=== PATIENT | female | born 1945 | race Caucasian/White ===

== ENCOUNTER → 2016-04-30 | Outpatient (CLI) | payer MEDICARE, BC | LOC: MW.CHIM 08:00 | PROVIDERS: ATTEND Internal Medicine | DX: I83.10 Varicose veins of unspecified lower extremity with inflammation (principal); I10 Essential (primary) hypertension; E78.00 Pure hypercholesterolemia, unspecified | CPT/HCPCS: 99214 ==

== ENCOUNTER → 2016-05-12 | Outpatient (CLI) | payer MEDICARE, BC | LOC: MW.CHIM 08:00 | PROVIDERS: ATTEND Internal Medicine | DX: I83.10 Varicose veins of unspecified lower extremity with inflammation (principal); I10 Essential (primary) hypertension; E78.00 Pure hypercholesterolemia, unspecified | CPT/HCPCS: 99214 ==

== ENCOUNTER → 2016-05-14 | Outpatient (CLI) | payer MEDICARE, BC ==
--- NOTE | 2016-05-14 16:39 | US ---
EXAMINATION: GUIDO HISTORY: Disorder of veins COMPARISON: None TECHNIQUE: Pressures obtained in the upper and lower extremities. FINDINGS/IMPRESSION: Both the left and right ABIs are greater than 1 and normal.
== END ==
LOC: MW.US 14:45
PROVIDERS: ATTEND Internal Medicine
DX: I87.2 Venous insufficiency (chronic) (peripheral) (principal); I87.8 Other specified disorders of veins
CPT/HCPCS: 93922; 93922-26

== ENCOUNTER 2019-12-12 12:51 | Inpatient (IN) | payer MEDICARE, BC, OTHER ==
[2019-12-12] MEDS ORDERED: Sodium Chloride 0.9% 10 ML Syringe FLUSH PRN (13:25)
[2019-12-12] MEDS ORDERED: Sodium Chloride 0.9% 2.5 ML Syringe FLUSH PRN (13:25)
[2019-12-12] MEDS ORDERED: Sodium Chloride 0.9% 1,000 ML IV ONE (13:25)
[2019-12-12] MEDS ORDERED: Dexamethasone 4 MG Tab PO ONE (13:26)
--- NOTE | 2019-12-12 14:10 | PCM.SN.2 ---
- Free Text/Narrative Note: Heart rate = 87 bpm, normal sinus rhythm, normal QRS interval, no STEMI. EKG and rhythm strip interpreted by me at 1358
[2019-12-12 14:26] LABS: BLOOD UREA NITROGEN,BUN 23 mg/dL (7.0-18.0); CARBON DIOXIDE,CO2 24.1 mmol/L (21.0-32.0); CHLORIDE,CL 90 mmol/L (98-107); GLUCOSE RANDOM 103 mg/dL (74-106); POTASSIUM,K 3.4 mmol/L (3.5-5.1); SODIUM,NA 125 mmol/L (136-145)
--- NOTE | 2019-12-12 15:04 | CR ---
INDICATION: Shortness of breath and cough TECHNIQUE: Chest 1 view. COMPARISON: None FINDINGS: Cardiovascular and mediastinum: Heart size and vasculature are normal in caliber and appearance. Mediastinum is within normal limits. Lungs and pleural space: Possible subtle right upper lobe airspace opacity. No sign of pleural effusion. No pneumothorax. Bones and soft tissues: No significant findings. IMPRESSION: Possible subtle right upper lobe airspace opacity. Dictated by Lavelle Eugene MD @ Dec 12 2019 2:58PM Signed by Dr. Lavelle Eugene @ Dec 12 2019 3:02PM
--- NOTE | 2019-12-12 15:07 | EDM.PDOC ---
ED HPI GENERAL MEDICAL PROBLEM - General Chief Complaint: General Stated Complaint: TIRED,FATIGUE,COVID EXPOSURE Time Seen by Provider: 12/12/19 13:00 Source of Information: Reports: Patient History Limitations: Reports: No Limitations - History of Present Illness INITIAL COMMENTS - FREE TEXT/NARRATIVE: HISTORY AND PHYSICAL: History of present illness: Patient is a 74-year-old female who presents to the emergency room with complaints of fatigue, decreased appetite, cough and generalized body aches. She has had symptoms for approximately 1 week and feels that they are not i mproving. She does have several family members who have tested positive for COVID concerned due to her exposures. Patient denies any fever, chills, headache, change in vision, syncope or near syncope. Denies any chest pain, back pain, abdominal pain, nausea, vomiting, diarrhea, constipation or dysuria. Has not noted any blood in urine or stool. Review of systems: As per history of present illness and below otherwise all systems reviewed and negative. Past medical history: As per history of present illness and as reviewed below otherwise noncontributory. Surgical history: As per history of present illness and as reviewed below otherwise noncontributory. Social history: See social history for further information Family history: As per history of present illness and as reviewed below otherwise noncontributory. Physical exam: General: Well developed and well nourished 74-year-old female. Alert and orientated x 3. Nontoxic in appearance and in no acute distress. Vital signs are stable and have been reviewed by me. Nursing notes were reviewed. HEENT: Atraumatic, normocephalic, pupils equal and reactive bilaterally, negative for conjunctival pallor or scleral icterus, mucous membranes moist, TMs normal bilaterally, throat clear, neck supple, nontender, trachea midline. No drooling or trismus noted. No meningeal signs. No hot potato voice noted. Lungs: Diminished to auscultation, breath sounds equal bilaterally, chest nontender. Normal work of breathing, no accessory muscles used. Heart: S1S2, regular rate and rhythm without overt murmur Abdomen: Soft, nondistended, nontender. Negative for masses or hepatosplenomegaly. Negative for costovertebral tenderness. Skin: Intact, warm, dry. No lesions or rashes noted. Hematologic: No petechiae or purpra. Mucosa appropriate color and normal nail bed color and refill. Extremities: Atraumatic, moves all extremities per self without difficulty or deficits, negative for cords or calf pain. Neurovascular unremarkable. Neuro: Awake, alert, oriented. Cranial nerves II through XII unremarkable. Cerebellum unremarkable. Motor and sensory unremarkable throughout. Exam nonfocal. Psychiatric: Mood and affect are appropriate. Normal thought process. Answering questions appropriately. Notes: Chest x-ray shows possible subtle right upper lobe airspace opacity. Her D- dimer is elevated, CT of the chest to rule out PE has been ordered. This can also assess for pneumonia. Diagnostics: CBC, CMP, troponin, EKG, chest x-ray, Covid, D-dimer, PE angio chest Therapeutics: IV fluids, Dexamethason Impression: COVID- 19 Plan: Observation admission to Med/Surg Definitive disposition and diagnosis as appropriate pending reevaluation and review of above. Duration: Week(s): Location: Reports: Chest - Related Data Allergies Allergy/AdvReac Type Severity Reaction Status Date / Time Penicillins Allergy Rash Verified 12/12/19 17:51 Home Meds: Home Meds Lisinopril/Hydrochlorothiazide [Lisinopril-Hctz 20-25 mg Tab] 20 - 25 mg PO DAILY 07/07/15 [History] Lovastatin 40 mg PO DAILY 07/07/15 [History] amLODIPine [Norvasc] 2.5 mg PO DAILY 07/07/15 [History] Past Medical History HEENT History: Reports: Allergic Rhinitis Other HEENT History: wears glasses Cardiovascular History: Reports: High Cholesterol, Hypertension Respiratory History: Reports: None Gastrointestinal History: Reports: Colon Polyp Genitourinary History: Reports: None 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 Musculoskeletal History: Reports: None Neurological History: Reports: None Psychiatric History: Reports: None Endocrine/Metabolic History: Reports: Obesity/BMI 30+ Hematologic History: Reports: None Immunologic History: Reports: None Oncologic (Cancer) History: Reports: None Dermatologic History: Reports: None - Past Surgical History Head Surgeries/Procedures: Reports: None Respiratory Surgical History: Reports: None Female Surgical History: Reports: Hysterectomy Endocrine Surgical History: Reports: None Neurological Surgical History: Reports: None Musculoskeletal Surgical History: Reports: None Oncologic Surgical History: Reports: None Social & Family History - Tobacco Use Tobacco Use Status *Q: Never Tobacco User - Recreational Drug Use Recreational Drug Use: No ED ROS GENERAL - Review of Systems Review Of Systems: Comprehensive ROS is negative, except as noted in HPI. ED EXAM, GENERAL - Physical Exam Exam: See Below (See dictation) Course - Vital Signs Last Recorded V/S: Last Vital Signs Temp 98 F 12/12/19 17:27 Pulse 99 12/12/19 17:27 Resp 20 12/12/19 17:27 BP 141/63 H 12/12/19 17:27 Pulse Ox 89 L 12/12/19 17:27 - Orders/Labs/Meds Orders: Active Orders 24 hr Category Date Time Status EKG Documentation Completion [RC] STAT Care 12/12/19 13:25 Active Oxygen Therapy, ED [RC] ASDIRECTED Care 12/12/19 13:26 Active Sodium Chloride 0.9% [Saline Flush] Med 12/12/19 13:25 Active 10 ml FLUSH ASDIRECTED PRN Sodium Chloride 0.9% [Saline Flush] Med 12/12/19 13:25 Active 2.5 ml FLUSH ASDIRECTED PRN Saline Lock Insert [OM.PC] Stat Oth 12/12/19 13:25 Ordered Medication Orders Amlodipine Besylate (Norvasc) 2.5 mg PO DAILY MACEY Dexamethasone (Dexamethasone) 4 mg PO Q24H MACEY Enoxaparin Sodium (Lovenox) 30 mg SUBCUT Q24H MACEY Remdesivir 100 mg/ Sodium (Chloride) 100 mls @ 100 mls/hr IV Q24H MACEY Stop: 12/16/19 18:29 Remdesivir 200 mg/ Sodium (Chloride) 250 mls @ 250 mls/hr IV ONETIME ONE Stop: 12/12/19 18:29 Last Admin: 12/12/19 17:46 Dose: 250 mls/hr Documented by: TYLER Influenza Virus Vaccine (Fluzone High-Dose Quad ) 240 mcg IM .ONCE ONE Stop: 12/14/19 09:01 Lovastatin (Mevacor) 40 mg PO BEDTIME MACEY Ondansetron HCl (Zofran) 4 mg IVPUSH Q4H PRN PRN Reason: Nausea Sodium Chloride (Saline Flush) 10 ml FLUSH ASDIRECTED PRN PRN Reason: Keep Vein Open Sodium Chloride (Saline Flush) 2.5 ml FLUSH ASDIRECTED PRN PRN Reason: Keep Vein Open Last Admin: 12/12/19 13:47 Dose: 2.5 ml Documented by: FRANCESCA Labs: Laboratory Tests 12/12/19 12/12/19 12/12/19 Range/Units 13:44 13:44 13:44 WBC 5.86 (4.0-11.0) K/uL RBC 4.97 (4.30-5.90) M/uL Hgb 13.7 (12.0-16.0) g/dL Hct 40.0 (36.0-46.0) % MCV 80.5 (80.0-98.0) fL MCH 27.6 (27.0-32.0) pg MCHC 34.3 (31.0-37.0) g/dL RDW Std Deviation 38.3 (28.0-62.0) fl RDW Coeff of Harsh 13 (11.0-15.0) % Plt Count 198 (150-400) K/uL MPV 9.30 (7.40-12.00) fL Neut % (Auto) 74.5 (48.0-80.0) % Lymph % (Auto) 18.1 (16.0-40.0) % [place] % (Auto) 7.2 (0.0-15.0) % Eos % (Auto) 0.0 (0.0-7.0) % Baso % (Auto) 0.2 (0.0-1.5) % Neut # (Auto) 4.4 (1.4-5.7) K/uL Lymph # (Auto) 1.1 (0.6-2.4) K/uL [place] # (Auto) 0.4 (0.0-0.8) K/uL Eos # (Auto) 0.0 (0.0-0.7) K/uL Baso # (Auto) 0.0 (0.0-0.1) K/uL Nucleated RBC % 0.0 /100WBC Nucleated RBCs # 0 K/uL D-Dimer, Quantitative 0.88 H (0.0-0.50) mg/L FEU Sodium 125 L (136-145) mmol/L Potassium 3.4 L (3.5-5.1) mmol/L Chloride 90 L (98-107) mmol/L Carbon Dioxide 24.1 (21.0-32.0) mmol/L BUN 23 H (7.0-18.0) mg/dL Creatinine 1.3 H (0.6-1.0) mg/dL Est Cr Clr Drug Dosing 30.93 mL/min Estimated GFR (MDRD) 39.9 ml/min Glucose 103 (74-106) mg/dL Calcium 8.8 (8.5-10.1) mg/dL Magnesium (1.8-2.4) mg/dL Total Bilirubin 0.4 (0.2-1.0) mg/dL AST 37 (15-37) IU/L ALT 34 (14-63) IU/L Alkaline Phosphatase 80 (46-116) U/L Troponin I < 0.050 (0.000-0.056) ng/mL Total Protein 7.1 (6.4-8.2) g/dL Albumin 2.8 L (3.4-5.0) g/dL Globulin 4.3 H (2.6-4.0) g/dL Albumin/Globulin Ratio 0.7 L (0.9-1.6) SARS-CoV-2 RNA (APRIL) (NEGATIVE) 12/12/19 12/12/19 Range/Units 13:44 14:08 WBC (4.0-11.0) K/uL RBC (4.30-5.90) M/uL Hgb (12.0-16.0) g/dL Hct (36.0-46.0) % MCV (80.0-98.0) fL MCH (27.0-32.0) pg MCHC (31.0-37.0) g/dL RDW Std Deviation (28.0-62.0) fl RDW Coeff of Harsh (11.0-15.0) % Plt Count (150-400) K/uL MPV (7.40-12.00) fL Neut % (Auto) (48.0-80.0) % Lymph % (Auto) (16.0-40.0) % [place] % (Auto) (0.0-15.0) % Eos % (Auto) (0.0-7.0) % Baso % (Auto) (0.0-1.5) % Neut # (Auto) (1.4-5.7) K/uL Lymph # (Auto) (0.6-2.4) K/uL [place] # (Auto) (0.0-0.8) K/uL Eos # (Auto) (0.0-0.7) K/uL Baso # (Auto) (0.0-0.1) K/uL Nucleated RBC % /100WBC Nucleated RBCs # K/uL D-Dimer, Quantitative (0.0-0.50) mg/L FEU Sodium (136-145) mmol/L Potassium (3.5-5.1) mmol/L Chloride (98-107) mmol/L Carbon Dioxide (21.0-32.0) mmol/L BUN (7.0-18.0) mg/dL Creatinine (0.6-1.0) mg/dL Est Cr Clr Drug Dosing mL/min Estimated GFR (MDRD) ml/min Glucose (74-106) mg/dL Calcium (8.5-10.1) mg/dL Magnesium 1.8 (1.8-2.4) mg/dL Total Bilirubin (0.2-1.0) mg/dL AST (15-37) IU/L ALT (14-63) IU/L Alkaline Phosphatase (46-116) U/L Troponin I (0.000-0.056) ng/mL Total Protein (6.4-8.2) g/dL Albumin (3.4-5.0) g/dL Globulin (2.6-4.0) g/dL Albumin/Globulin Ratio (0.9-1.6) SARS-CoV-2 RNA (APRIL) POSITIVE H (NEGATIVE) Meds: Medications Generic Name Dose Route Start Last Admin Trade Name Freq PRN Reason Stop Dose Admin Amlodipine Besylate 2.5 mg 12/13/19 09:00 Norvasc PO DAILY MACEY Dexamethasone 4 mg 12/13/19 16:00 Dexamethasone PO Q24H MACEY Enoxaparin Sodium 30 mg 12/12/19 17:30 Lovenox SUBCUT Q24H MACEY Remdesivir 100 mg/ Sodium 100 mls @ 100 mls/hr 12/13/19 17:30 Chloride IV 12/16/19 18:29 Q24H MACEY Remdesivir 200 mg/ Sodium 250 mls @ 250 mls/hr 12/12/19 17:30 12/12/19 17:46 Chloride IV 12/12/19 18:29 250 mls/hr ONETIME ONE Administration Influenza Virus Vaccine 240 mcg 12/14/19 09:00 Fluzone High-Dose Quad 2020-21 IM 12/14/19 09:01 .ONCE ONE Lovastatin 40 mg 12/12/19 21:00 Mevacor PO BEDTIME MACEY Ondansetron HCl 4 mg 12/12/19 15:52 Zofran IVPUSH Q4H PRN Nausea Sodium Chloride 10 ml 12/12/19 13:25 Saline Flush FLUSH ASDIRECTED PRN Keep Vein Open Sodium Chloride 2.5 ml 12/12/19 13:25 12/12/19 13:47 Saline Flush FLUSH 2.5 ml ASDIRECTED PRN Administration Keep Vein Open Discontinued Medications Generic Name Dose Route Start Last Admin Trade Name Freq PRN Reason Stop Dose Admin Dexamethasone 6 mg 12/12/19 13:26 12/12/19 13:45 Dexamethasone PO 12/12/19 13:27 6 mg ONETIME ONE Administration Enoxaparin Sodium 30 mg 12/12/19 17:00 Lovenox SUBCUT Q24H MACEY Sodium Chloride 1,000 mls @ 999 mls/hr 12/12/19 13:25 12/12/19 13:45 Normal Saline IV 12/12/19 14:25 999 mls/hr STAT ONE Administration Influenza Virus Vaccine 1 each 12/12/19 17:39 Pharmacy To Dose - Influenza Vaccine IM 12/12/19 17:40 ONETIME ONE Iopamidol 75 ml 12/12/19 17:16 12/12/19 17:35 Isovue Multipack-370 (76%) IVPUSH 12/12/19 17:17 75 ml ONETIME STA Administration Departure - Departure Time of Disposition: 18:29 Disposition: Admitted As Inpatient 65 Clinical Impression: COVID-19 - Discharge Information Sepsis Event Note (ED) - Evaluation Sepsis Screening Result: No Definite Risk - Focused Exam Vital Signs: Vital Signs Temp Pulse Resp BP Pulse Ox 12/12/19 14:13 86 112/58 L 94 L 12/12/19 13:10 98.4 F 89 17 157/67 H 89 L - My Orders Last 24 Hours: My Active Orders 12/12/19 13:25 EKG Documentation Completion [RC] STAT Sodium Chloride 0.9% [Saline Flush] 10 ml FLUSH ASDIRECTED PRN Sodium Chloride 0.9% [Saline Flush] 2.5 ml FLUSH ASDIRECTED PRN Saline Lock Insert [OM.PC] Stat 12/12/19 13:26 Oxygen Therapy, ED [RC] ASDIRECTED - Assessment/Plan Last 24 Hours: My Active Orders 12/12/19 13:25 EKG Documentation Completion [RC] STAT Sodium Chloride 0.9% [Saline Flush] 10 ml FLUSH ASDIRECTED PRN Sodium Chloride 0.9% [Saline Flush] 2.5 ml FLUSH ASDIRECTED PRN Saline Lock Insert [OM.PC] Stat 12/12/19 13:26 Oxygen Therapy, ED [RC] ASDIRECTED
[2019-12-12] MEDS ORDERED: Ondansetron 4 MG/2 ML SDV IVPUSH PRN (15:52)
[2019-12-12] MEDS ORDERED: Enoxaparin 40 MG/0.4 ML Syringe SUBCUT SCH (16:00)
--- NOTE | 2019-12-12 16:02 | PCM.HP.2 ---
H&P History of Present Illness - General Date of Service: 12/12/19 Admit Problem/Dx: Admission Diagnosis/Problem Admission Diagnosis/Problem Viral respiratory infection - History of Present Illness Initial Comments - Free Text/Narative: 74 yo female with pmh of hypertension who presents with one week history of f atigue, headache, and cough. Patient in the ED was requiring 2 Liters NC to keep sats above 90%. She was positive for COVID. Sodium was 125, and Creatinine 1.3. CXR reported right upper lobe opacity. - Related Data Allergies/Adverse Reactions: Allergies Allergy/AdvReac Type Severity Reaction Status Date / Time Penicillins Allergy Rash Verified 12/12/19 13:14 Home Medications: Home Meds Lisinopril/Hydrochlorothiazide [Lisinopril-Hctz 20-25 mg Tab] 1 tab PO DAILY 07/07/15 [History] Lovastatin 1 tab PO DAILY 07/07/15 [History] amLODIPine [Norvasc] 1 tab PO DAILY 07/07/15 [History] Past Medical History HEENT History: Reports: Allergic Rhinitis Other HEENT History: wears glasses Cardiovascular History: Reports: High Cholesterol, Hypertension Respiratory History: Reports: None Gastrointestinal History: Reports: Colon Polyp Genitourinary History: Reports: None [employer] History: Reports: None Musculoskeletal History: Reports: None Neurological History: Reports: None Psychiatric History: Reports: None Endocrine/Metabolic History: Reports: Obesity/BMI 30+ Hematologic History: Reports: None Immunologic History: Reports: None Oncologic (Cancer) History: Reports: None Dermatologic History: Reports: None - Past Surgical History Head Surgeries/Procedures: Reports: None Respiratory Surgical History: Reports: None Female Surgical History: Reports: Hysterectomy Endocrine Surgical History: Reports: None Neurological Surgical History: Reports: None Musculoskeletal Surgical History: Reports: None Oncologic Surgical History: Reports: None Social & Family History - Tobacco Use Tobacco Use Status *Q: Never Tobacco User - Recreational Drug Use Recreational Drug Use: No H&P Review of Systems - Review of Systems: Review Of Systems: Comprehensive ROS is negative, except as noted in HPI. Exam - Exam Exam: See Below - Vital Signs Vital Signs: Last Vital Signs Temp 36.9 C 12/12/19 13:10 Pulse 94 12/12/19 15:42 Resp 18 12/12/19 15:42 BP 106/64 12/12/19 15:42 Pulse Ox 91 L 12/12/19 15:42 Weight: 89.358 kg - Exam General: Alert, Oriented HEENT: Mucosa Moist & [place] Lungs: Clear to Auscultation, Normal Respiratory Effort Cardiovascular: Regular Rate, Regular Rhythm GI/Abdominal Exam: Normal Bowel Sounds, Soft, Non-Tender Extremities: No Pedal Edema Skin: Warm, Dry, Intact - Patient Data Lab Results Last 24 hrs: Laboratory Results - last 24 hr 12/12/19 12/12/19 12/12/19 Range/Units 13:44 13:44 13:44 WBC 5.86 (4.0-11.0) K/uL RBC 4.97 (4.30-5.90) M/uL Hgb 13.7 (12.0-16.0) g/dL Hct 40.0 (36.0-46.0) % MCV 80.5 (80.0-98.0) fL MCH 27.6 (27.0-32.0) pg MCHC 34.3 (31.0-37.0) g/dL RDW Std Deviation 38.3 (28.0-62.0) fl RDW Coeff of Harsh 13 (11.0-15.0) % Plt Count 198 (150-400) K/uL MPV 9.30 (7.40-12.00) fL Neut % (Auto) 74.5 (48.0-80.0) % Lymph % (Auto) 18.1 (16.0-40.0) % [place] % (Auto) 7.2 (0.0-15.0) % Eos % (Auto) 0.0 (0.0-7.0) % Baso % (Auto) 0.2 (0.0-1.5) % Neut # (Auto) 4.4 (1.4-5.7) K/uL Lymph # (Auto) 1.1 (0.6-2.4) K/uL [place] # (Auto) 0.4 (0.0-0.8) K/uL Eos # (Auto) 0.0 (0.0-0.7) K/uL Baso # (Auto) 0.0 (0.0-0.1) K/uL Nucleated RBC % 0.0 /100WBC Nucleated RBCs # 0 K/uL D-Dimer, Quantitative 0.88 H (0.0-0.50) mg/L FEU Sodium 125 L (136-145) mmol/L Potassium 3.4 L (3.5-5.1) mmol/L Chloride 90 L (98-107) mmol/L Carbon Dioxide 24.1 (21.0-32.0) mmol/L BUN 23 H (7.0-18.0) mg/dL Creatinine 1.3 H (0.6-1.0) mg/dL Est Cr Clr Drug Dosing 30.93 mL/min Estimated GFR (MDRD) 39.9 ml/min Glucose 103 (74-106) mg/dL Calcium 8.8 (8.5-10.1) mg/dL Total Bilirubin 0.4 (0.2-1.0) mg/dL AST 37 (15-37) IU/L ALT 34 (14-63) IU/L Alkaline Phosphatase 80 (46-116) U/L Troponin I < 0.050 (0.000-0.056) ng/mL Total Protein 7.1 (6.4-8.2) g/dL Albumin 2.8 L (3.4-5.0) g/dL Globulin 4.3 H (2.6-4.0) g/dL Albumin/Globulin Ratio 0.7 L (0.9-1.6) SARS-CoV-2 RNA (APRIL) (NEGATIVE) 12/12/19 Range/Units 14:08 WBC (4.0-11.0) K/uL RBC (4.30-5.90) M/uL Hgb (12.0-16.0) g/dL Hct (36.0-46.0) % MCV (80.0-98.0) fL MCH (27.0-32.0) pg MCHC (31.0-37.0) g/dL RDW Std Deviation (28.0-62.0) fl RDW Coeff of Harsh (11.0-15.0) % Plt Count (150-400) K/uL MPV (7.40-12.00) fL Neut % (Auto) (48.0-80.0) % Lymph % (Auto) (16.0-40.0) % [place] % (Auto) (0.0-15.0) % Eos % (Auto) (0.0-7.0) % Baso % (Auto) (0.0-1.5) % Neut # (Auto) (1.4-5.7) K/uL Lymph # (Auto) (0.6-2.4) K/uL [place] # (Auto) (0.0-0.8) K/uL Eos # (Auto) (0.0-0.7) K/uL Baso # (Auto) (0.0-0.1) K/uL Nucleated RBC % /100WBC Nucleated RBCs # K/uL D-Dimer, Quantitative (0.0-0.50) mg/L FEU Sodium (136-145) mmol/L Potassium (3.5-5.1) mmol/L Chloride (98-107) mmol/L Carbon Dioxide (21.0-32.0) mmol/L BUN (7.0-18.0) mg/dL Creatinine (0.6-1.0) mg/dL Est Cr Clr Drug Dosing mL/min Estimated GFR (MDRD) ml/min Glucose (74-106) mg/dL Calcium (8.5-10.1) mg/dL Total Bilirubin (0.2-1.0) mg/dL AST (15-37) IU/L ALT (14-63) IU/L Alkaline Phosphatase (46-116) U/L Troponin I (0.000-0.056) ng/mL Total Protein (6.4-8.2) g/dL Albumin (3.4-5.0) g/dL Globulin (2.6-4.0) g/dL Albumin/Globulin Ratio (0.9-1.6) SARS-CoV-2 RNA (APRIL) POSITIVE H (NEGATIVE) Result Diagrams: 12/12/19 13:44 12/12/19 13:44 Sepsis Event Note - Evaluation Sepsis Screening Result: No Definite Risk - Focused Exam Vital Signs: Vital Signs Temp Pulse Resp BP Pulse Ox Pulse Ox 12/12/19 15:42 94 18 106/64 91 L 12/12/19 15:41 93 L 12/12/19 14:13 86 112/58 L 94 L 12/12/19 13:10 36.9 C 89 17 157/67 H 89 L - Problem List (1) COVID-19 SNOMED Code(s): 518658138 ICD Code: U07.1 - COVID-19 Status: Acute Current Visit: Yes (2) Respiratory failure with hypoxia SNOMED Code(s): 28784209966075128 ICD Code: J96.91 - RESPIRATORY FAILURE, UNSPECIFIED WITH HYPOXIA Status: Acute Current Visit: Yes (3) ITALIA (acute kidney injury) SNOMED Code(s): 80539797, 51453968 ICD Code: N17.9 - ACUTE KIDNEY FAILURE, UNSPECIFIED Status: Acute Current Visit: Yes (4) Hypertension SNOMED Code(s): 85839069 ICD Code: I10 - ESSENTIAL (PRIMARY) HYPERTENSION Status: Chronic Current Visit: Yes (5) Hyponatremia SNOMED Code(s): 77537008 ICD Code: E87.1 - HYPO-OSMOLALITY AND HYPONATREMIA Status: Acute Current Visit: Yes Problem List Initiated/Reviewed/Updated: Yes Orders Last 24hrs: Active Orders 24 hr Category Date Time Status Admission Status [Patient Status] [ADT] Stat ADT 12/12/19 15:22 Active Antiembolic Devices [RC] PER UNIT ROUTINE Care 12/12/19 15:53 Ordered EKG Documentation Completion [RC] STAT Care 12/12/19 13:25 Active Oxygen Therapy [RC] PRN Care 12/12/19 15:52 Ordered Oxygen Therapy, ED [RC] ASDIRECTED Care 12/12/19 13:26 Active Up ad Andressa [RC] ASDIRECTED Care 12/12/19 15:52 Ordered VTE/DVT Education [RC] PER UNIT ROUTINE Care 12/12/19 15:52 Ordered Vital Signs [RC] Q4H Care 12/12/19 15:52 Ordered Regular Diet [DIET] Diet 12/12/19 Breakfast Ordered PE Chest [Ang Chest] [CT] Stat Exams 12/12/19 14:38 Ordered CBC WITH AUTO DIFF [HEME] AM Lab 12/13/19 05:11 Ordered CBC WITH AUTO DIFF [HEME] AM Lab 12/14/19 05:11 Ordered CBC WITH AUTO DIFF [HEME] AM Lab 12/15/19 05:11 Ordered CBC WITH AUTO DIFF [HEME] AM Lab 12/16/19 05:11 Ordered COMPREHENSIVE METABOLIC PN,CMP [CHEM] AM Lab 12/13/19 05:11 Ordered COMPREHENSIVE METABOLIC PN,CMP [CHEM] AM Lab 12/14/19 05:11 Ordered COMPREHENSIVE METABOLIC PN,CMP [CHEM] AM Lab 12/15/19 05:11 Ordered COMPREHENSIVE METABOLIC PN,CMP [CHEM] AM Lab 12/16/19 05:11 Ordered CREATININE,URINE RAND [URCHEM] Urgent Lab 12/12/19 15:44 Ordered MAGNESIUM [CHEM] Routine Lab 12/12/19 13:44 Received SODIUM,URINE RANDOM [URCHEM] Urgent Lab 12/12/19 15:44 Ordered UA RFX KAILA AND CULT IF INDIC [URIN] Urgent Lab 12/12/19 15:44 Ordered Enoxaparin [Lovenox] Med 12/12/19 16:00 Ordered 40 mg SUBCUT Q24H Lovastatin [Lovastatin] Med 12/13/19 09:00 Ordered 1 tab PO DAILY Ondansetron [Zofran] Med 12/12/19 15:52 Ordered 4 mg IVPUSH Q4H PRN Remdesivir (Eua) [Remdesivir (EUA)] 100 mg Med 12/13/19 16:00 Ordered Sodium Chloride 0.9% [Normal Saline] 100 ml IV Q24H Sodium Chloride 0.9% [Saline Flush] Med 12/12/19 13:25 Active 10 ml FLUSH ASDIRECTED PRN Sodium Chloride 0.9% [Saline Flush] Med 12/12/19 13:25 Active 2.5 ml FLUSH ASDIRECTED PRN amLODIPine [Norvasc] Med 12/13/19 09:00 Ordered 2.5 mg PO DAILY dexAMETHasone Med 12/13/19 16:00 Ordered 4 mg PO Q24H Saline Lock Insert [OM.PC] Stat Oth 12/12/19 13:25 Ordered Sequential Compression Device [OM.PC] Per Unit Routine Oth 12/12/19 15:52 Ordered Resuscitation Status Routine Resus Stat 12/12/19 15:52 Ordered Medication Orders Amlodipine Besylate (Norvasc) 2.5 mg PO DAILY MACEY Dexamethasone (Dexamethasone) 4 mg PO Q24H MACEY Enoxaparin Sodium (Lovenox) 40 mg SUBCUT Q24H MACEY Remdesivir 100 mg/ Sodium (Chloride) 100 mls @ 100 mls/hr IV Q24H MACEY Stop: 12/16/19 16:59 Non-Formulary Medication (Lovastatin [Lovastatin]) 1 tab PO DAILY MACEY Ondansetron HCl (Zofran) 4 mg IVPUSH Q4H PRN PRN Reason: Nausea Sodium Chloride (Saline Flush) 10 ml FLUSH ASDIRECTED PRN PRN Reason: Keep Vein Open Sodium Chloride (Saline Flush) 2.5 ml FLUSH ASDIRECTED PRN PRN Reason: Keep Vein Open Last Admin: 12/12/19 13:47 Dose: 2.5 ml Documented by: FRANCESCA Assessment/Plan Comment:: 74 yo female admitted for COVID-19 COVID: treating with Remdesivir, dexamethason, and prophylactic lovenox Patient giving fact sheet regarding FDA EUA. Patient explained benefits vs risk including hepatitis and allergy. Patient consented to remdesivir Hyponatremia: holding HCTZ, received fluids in ED, will recheck BMP tonight. ITALIA: creatinine 1.3 hold GAURAV for now.
[2019-12-12] MEDS ORDERED: Enoxaparin 30 MG/0.3 ML Syringe SUBCUT SCH ×2 (16:15→17:00)
[2019-12-12] MEDS ORDERED: Iopamidol 755 MG/ML 500 ML Multipack Bottle IVPUSH STA (17:16)
--- NOTE | 2019-12-12 18:21 | CT ---
INDICATION: Elevated D-dimer. COVID positive TECHNIQUE: CT chest pulmonary PE protocol acquired with IV contrast. 75 mL of Isovue 370 administered. COMPARISON: None FINDINGS: Cardiovascular structures: Normal vascular enhancement of the pulmonary arteries, no sign of pulmonary embolism. Heart size is normal. No sign of aneurysm or dissection in the thoracic aorta. Atherosclerotic changes. Mediastinum and yvonne: Enlarged right hilar lymph nodes measuring up to 2.1 x 1.5 cm, mildly prominent precarinal and subcarinal lymph nodes measuring up to 1.3 cm in short axis, and a borderline left hilar lymph node. A moderate hiatal hernia. Lungs: Ground-glass infiltrates in the right upper lobe and bilateral lower lobes. Mild basilar subsegmental atelectasis. Pleura and pericardium: Tiny posterior left basilar pleural fluid. Mild posterior pericardial thickening versus small fluid. Chest wall and axilla: No mass or adenopathy. A 1.1 cm calcified left thyroid lobe lesion and additional small ill-defined thyroid low-density nodules. Upper abdomen: Mild adrenal thickening. Bones: No significant findings. IMPRESSION: No CT evidence of a pulmonary embolus. Bilateral pulmonary ground-glass infiltrates compatible with COVID-19 pneumonia, given the history. Enlarged and borderline hilar and mediastinal lymph nodes. A moderate hiatal hernia. Thyroid lesions. Follow-up with nonemergent sonography. Commonly reported imaging features of (COVID- 19 ) pneumonia are present. Other processes such is influenza pneumonia and organizing pneumonia, as can be seen as well as drug toxicity and connective tissue disease can cause similar imaging pattern. REFERENCE : "[employer] Society of [place] Expert Consensus Statement on Reporting Chest CT Findings Related to COVID-19. Endorsed by the Society of Thoracic Radiology, the [place] [employer], and [employer]." RADIOLOGY: Cardiothoracic Imaging volume. 2, No. 2 Published Online:May 16 2019 [email or web address] Please note that all CT scans at this facility use dose modulation, iterative reconstruction, and/or weight-based dosing when appropriate to reduce radiation dose to as low as reasonably achievable. Dictated by Jai Amos MD @ Dec 12 2019 6:05PM Signed by Dr. Jai Amos @ Dec 12 2019 6:20PM
[2019-12-12] MEDS: Enoxaparin 30 MG/0.3 ML Syringe SUBCUT SCH (18:40)
[2019-12-12 21:42] LABS: CARBON DIOXIDE,CO2 25.7 mmol/L (21.0-32.0); POTASSIUM,K 4.1 mmol/L (3.5-5.1)
[2019-12-13 06:49] LABS: CARBON DIOXIDE,CO2 24.1 mmol/L (21.0-32.0); POTASSIUM,K 3.9 mmol/L (3.5-5.1)
[2019-12-13] MEDS: amLODIPine 2.5 MG Tab PO SCH (08:00)
[2019-12-13] MEDS: Pantoprazole 40 MG in Sodium Chloride 0.9% 10 ML IV SCH (08:00)
[2019-12-13] MEDS ORDERED: Acetaminophen 325 MG Tab PO PRN (08:15)
--- NOTE | 2019-12-13 09:04 | PCM.PN ---
- General Info Date of Service: 12/13/19 Subjective Update: No fevers or chills overnight. Reports mild cough and back pain this morning. - Patient Data Vitals - Most Recent: Last Vital Signs Temp 36.6 C 12/13/19 07:55 Pulse 80 12/13/19 07:55 Resp 16 12/13/19 07:55 BP 129/60 12/13/19 08:00 Pulse Ox 91 L 12/13/19 07:55 Weight - Most Recent: 91.354 kg I&O - Last 24 Hours: Intake & Output 12/12/19 12/13/19 12/13/19 22:59 06:59 14:59 Intake Total 1100 Output Total 1300 Balance -200 Lab Results Last 24 Hours: Laboratory Results - last 24 hr 12/12/19 12/12/19 12/12/19 Range/Units 13:44 13:44 13:44 WBC 5.86 (4.0-11.0) K/uL RBC 4.97 (4.30-5.90) M/uL Hgb 13.7 (12.0-16.0) g/dL Hct 40.0 (36.0-46.0) % MCV 80.5 (80.0-98.0) fL MCH 27.6 (27.0-32.0) pg MCHC 34.3 (31.0-37.0) g/dL RDW Std Deviation 38.3 (28.0-62.0) fl RDW Coeff of Harsh 13 (11.0-15.0) % Plt Count 198 (150-400) K/uL MPV 9.30 (7.40-12.00) fL Neut % (Auto) 74.5 (48.0-80.0) % Lymph % (Auto) 18.1 (16.0-40.0) % [place] % (Auto) 7.2 (0.0-15.0) % Eos % (Auto) 0.0 (0.0-7.0) % Baso % (Auto) 0.2 (0.0-1.5) % Neut # (Auto) 4.4 (1.4-5.7) K/uL Lymph # (Auto) 1.1 (0.6-2.4) K/uL [place] # (Auto) 0.4 (0.0-0.8) K/uL Eos # (Auto) 0.0 (0.0-0.7) K/uL Baso # (Auto) 0.0 (0.0-0.1) K/uL Nucleated RBC % 0.0 /100WBC Nucleated RBCs # 0 K/uL D-Dimer, Quantitative 0.88 H (0.0-0.50) mg/L FEU Sodium 125 L (136-145) mmol/L Potassium 3.4 L (3.5-5.1) mmol/L Chloride 90 L (98-107) mmol/L Carbon Dioxide 24.1 (21.0-32.0) mmol/L BUN 23 H (7.0-18.0) mg/dL Creatinine 1.3 H (0.6-1.0) mg/dL Est Cr Clr Drug Dosing 30.93 mL/min Estimated GFR (MDRD) 39.9 ml/min Glucose 103 (74-106) mg/dL Calcium 8.8 (8.5-10.1) mg/dL Magnesium (1.8-2.4) mg/dL Total Bilirubin 0.4 (0.2-1.0) mg/dL AST 37 (15-37) IU/L ALT 34 (14-63) IU/L Alkaline Phosphatase 80 (46-116) U/L Troponin I < 0.050 (0.000-0.056) ng/mL Total Protein 7.1 (6.4-8.2) g/dL Albumin 2.8 L (3.4-5.0) g/dL Globulin 4.3 H (2.6-4.0) g/dL Albumin/Globulin Ratio 0.7 L (0.9-1.6) Urine Color Urine Appearance Urine pH (5.0-8.0) Ur Specific [place] (1.001-1.035) Urine Protein (NEGATIVE) mg/dL Urine Glucose (UA) (NEGATIVE) mg/dL Urine Ketones (NEGATIVE) mg/dL Urine Occult Blood (NEGATIVE) Urine Nitrite (NEGATIVE) Urine Bilirubin (NEGATIVE) Urine Urobilinogen (<2.0) EU/dL Ur Leukocyte Esterase (NEGATIVE) Ur Random Creatinine mg/dL Ur Random Sodium (40.0-220.0) mmol/L SARS-CoV-2 RNA (APRIL) (NEGATIVE) 12/12/19 12/12/19 12/12/19 Range/Units 13:44 14:08 20:55 WBC (4.0-11.0) K/uL RBC (4.30-5.90) M/uL Hgb (12.0-16.0) g/dL Hct (36.0-46.0) % MCV (80.0-98.0) fL MCH (27.0-32.0) pg MCHC (31.0-37.0) g/dL RDW Std Deviation (28.0-62.0) fl RDW Coeff of Harsh (11.0-15.0) % Plt Count (150-400) K/uL MPV (7.40-12.00) fL Neut % (Auto) (48.0-80.0) % Lymph % (Auto) (16.0-40.0) % [place] % (Auto) (0.0-15.0) % Eos % (Auto) (0.0-7.0) % Baso % (Auto) (0.0-1.5) % Neut # (Auto) (1.4-5.7) K/uL Lymph # (Auto) (0.6-2.4) K/uL [place] # (Auto) (0.0-0.8) K/uL Eos # (Auto) (0.0-0.7) K/uL Baso # (Auto) (0.0-0.1) K/uL Nucleated RBC % /100WBC Nucleated RBCs # K/uL D-Dimer, Quantitative (0.0-0.50) mg/L FEU Sodium 130 L (136-145) mmol/L Potassium 4.1 (3.5-5.1) mmol/L Chloride 95 L (98-107) mmol/L Carbon Dioxide 25.7 (21.0-32.0) mmol/L BUN 18 (7.0-18.0) mg/dL Creatinine 1.2 H (0.6-1.0) mg/dL Est Cr Clr Drug Dosing 33.51 mL/min Estimated GFR (MDRD) 43.8 ml/min Glucose 152 H (74-106) mg/dL Calcium 8.5 (8.5-10.1) mg/dL Magnesium 1.8 (1.8-2.4) mg/dL Total Bilirubin (0.2-1.0) mg/dL AST (15-37) IU/L ALT (14-63) IU/L Alkaline Phosphatase (46-116) U/L Troponin I (0.000-0.056) ng/mL Total Protein (6.4-8.2) g/dL Albumin (3.4-5.0) g/dL Globulin (2.6-4.0) g/dL Albumin/Globulin Ratio (0.9-1.6) Urine Color Urine Appearance Urine pH (5.0-8.0) Ur Specific [place] (1.001-1.035) Urine Protein (NEGATIVE) mg/dL Urine Glucose (UA) (NEGATIVE) mg/dL Urine Ketones (NEGATIVE) mg/dL Urine Occult Blood (NEGATIVE) Urine Nitrite (NEGATIVE) Urine Bilirubin (NEGATIVE) Urine Urobilinogen (<2.0) EU/dL Ur Leukocyte Esterase (NEGATIVE) Ur Random Creatinine mg/dL Ur Random Sodium (40.0-220.0) mmol/L SARS-CoV-2 RNA (APRIL) POSITIVE H (NEGATIVE) 12/12/19 12/12/19 12/13/19 Range/Units 22:00 22:00 05:35 WBC 3.34 L (4.0-11.0) K/uL RBC 4.67 (4.30-5.90) M/uL Hgb 13.0 (12.0-16.0) g/dL Hct 37.9 (36.0-46.0) % MCV 81.2 (80.0-98.0) fL MCH 27.8 (27.0-32.0) pg MCHC 34.3 (31.0-37.0) g/dL RDW Std Deviation 38.6 (28.0-62.0) fl RDW Coeff of Harsh 13 (11.0-15.0) % Plt Count 195 (150-400) K/uL MPV 9.80 (7.40-12.00) fL Neut % (Auto) 60.5 (48.0-80.0) % Lymph % (Auto) 29.9 (16.0-40.0) % [place] % (Auto) 9.6 (0.0-15.0) % Eos % (Auto) 0.0 (0.0-7.0) % Baso % (Auto) 0.0 (0.0-1.5) % Neut # (Auto) 2.0 (1.4-5.7) K/uL Lymph # (Auto) 1.0 (0.6-2.4) K/uL [place] # (Auto) 0.3 (0.0-0.8) K/uL Eos # (Auto) 0.0 (0.0-0.7) K/uL Baso # (Auto) 0.0 (0.0-0.1) K/uL Nucleated RBC % 0.0 /100WBC Nucleated RBCs # 0 K/uL D-Dimer, Quantitative (0.0-0.50) mg/L FEU Sodium (136-145) mmol/L Potassium (3.5-5.1) mmol/L Chloride (98-107) mmol/L Carbon Dioxide (21.0-32.0) mmol/L BUN (7.0-18.0) mg/dL Creatinine (0.6-1.0) mg/dL Est Cr Clr Drug Dosing mL/min Estimated GFR (MDRD) ml/min Glucose (74-106) mg/dL Calcium (8.5-10.1) mg/dL Magnesium (1.8-2.4) mg/dL Total Bilirubin (0.2-1.0) mg/dL AST (15-37) IU/L ALT (14-63) IU/L Alkaline Phosphatase (46-116) U/L Troponin I (0.000-0.056) ng/mL Total Protein (6.4-8.2) g/dL Albumin (3.4-5.0) g/dL Globulin (2.6-4.0) g/dL Albumin/Globulin Ratio (0.9-1.6) Urine Color YELLOW Urine Appearance CLEAR Urine pH 6.5 (5.0-8.0) Ur Specific [place] <= 1.005 (1.001-1.035) Urine Protein NEGATIVE (NEGATIVE) mg/dL Urine Glucose (UA) NEGATIVE (NEGATIVE) mg/dL Urine Ketones NEGATIVE (NEGATIVE) mg/dL Urine Occult Blood NEGATIVE (NEGATIVE) Urine Nitrite NEGATIVE (NEGATIVE) Urine Bilirubin NEGATIVE (NEGATIVE) Urine Urobilinogen 0.2 (<2.0) EU/dL Ur Leukocyte Esterase NEGATIVE (NEGATIVE) Ur Random Creatinine 24.1 mg/dL Ur Random Sodium 36.0 L (40.0-220.0) mmol/L SARS-CoV-2 RNA (APRIL) (NEGATIVE) 12/13/19 Range/Units 05:35 WBC (4.0-11.0) K/uL RBC (4.30-5.90) M/uL Hgb (12.0-16.0) g/dL Hct (36.0-46.0) % MCV (80.0-98.0) fL MCH (27.0-32.0) pg MCHC (31.0-37.0) g/dL RDW Std Deviation (28.0-62.0) fl RDW Coeff of Harsh (11.0-15.0) % Plt Count (150-400) K/uL MPV (7.40-12.00) fL Neut % (Auto) (48.0-80.0) % Lymph % (Auto) (16.0-40.0) % [place] % (Auto) (0.0-15.0) % Eos % (Auto) (0.0-7.0) % Baso % (Auto) (0.0-1.5) % Neut # (Auto) (1.4-5.7) K/uL Lymph # (Auto) (0.6-2.4) K/uL [place] # (Auto) (0.0-0.8) K/uL Eos # (Auto) (0.0-0.7) K/uL Baso # (Auto) (0.0-0.1) K/uL Nucleated RBC % /100WBC Nucleated RBCs # K/uL D-Dimer, Quantitative (0.0-0.50) mg/L FEU Sodium 130 L (136-145) mmol/L Potassium 3.9 (3.5-5.1) mmol/L Chloride 97 L (98-107) mmol/L Carbon Dioxide 24.1 (21.0-32.0) mmol/L BUN 17 (7.0-18.0) mg/dL Creatinine 1.0 (0.6-1.0) mg/dL Est Cr Clr Drug Dosing 40.21 mL/min Estimated GFR (MDRD) 54.1 ml/min Glucose 133 H (74-106) mg/dL Calcium 8.7 (8.5-10.1) mg/dL Magnesium (1.8-2.4) mg/dL Total Bilirubin 0.3 (0.2-1.0) mg/dL AST 32 (15-37) IU/L ALT 33 (14-63) IU/L Alkaline Phosphatase 73 (46-116) U/L Troponin I (0.000-0.056) ng/mL Total Protein 6.5 (6.4-8.2) g/dL Albumin 2.5 L (3.4-5.0) g/dL Globulin 4.0 (2.6-4.0) g/dL Albumin/Globulin Ratio 0.6 L (0.9-1.6) Urine Color Urine Appearance Urine pH (5.0-8.0) Ur Specific [place] (1.001-1.035) Urine Protein (NEGATIVE) mg/dL Urine Glucose (UA) (NEGATIVE) mg/dL Urine Ketones (NEGATIVE) mg/dL Urine Occult Blood (NEGATIVE) Urine Nitrite (NEGATIVE) Urine Bilirubin (NEGATIVE) Urine Urobilinogen (<2.0) EU/dL Ur Leukocyte Esterase (NEGATIVE) Ur Random Creatinine mg/dL Ur Random Sodium (40.0-220.0) mmol/L SARS-CoV-2 RNA (APRIL) (NEGATIVE) Med Orders - Current: Current Medications Acetaminophen (Tylenol) 325 mg PO Q4H PRN PRN Reason: Pain Amlodipine Besylate (Norvasc) 2.5 mg PO DAILY [facility] Last Admin: 12/13/19 08:00 Dose: 2.5 mg Documented by: Dexamethasone (Dexamethasone) 4 mg PO Q24H [facility] Enoxaparin Sodium (Lovenox) 30 mg SUBCUT Q24H [facility] Last Admin: 12/12/19 18:40 Dose: 30 mg Documented by: Remdesivir 100 mg/ Sodium (Chloride) 100 mls @ 100 mls/hr IV Q24H [facility] Stop: 12/16/19 18:29 Pantoprazole Sodium 40 mg/ (Sodium Chloride) 10 mls @ 300 mls/hr IV Q24H [facility] Last Admin: 12/13/19 08:00 Dose: 300 mls/hr Documented by: Influenza Virus Vaccine (Fluzone High-Dose Quad ) 240 mcg IM .ONCE ONE Stop: 12/14/19 09:01 Lovastatin (Mevacor) 40 mg PO BEDTIME [facility] Last Admin: 12/12/19 22:30 Dose: 40 mg Documented by: Ondansetron HCl (Zofran) 4 mg IVPUSH Q4H PRN PRN Reason: Nausea Sodium Chloride (Saline Flush) 10 ml FLUSH ASDIRECTED PRN PRN Reason: Keep Vein Open Sodium Chloride (Saline Flush) 2.5 ml FLUSH ASDIRECTED PRN PRN Reason: Keep Vein Open Last Admin: 12/12/19 13:47 Dose: 2.5 ml Documented by: Discontinued Medications Dexamethasone (Dexamethasone) 6 mg PO ONETIME ONE Stop: 12/12/19 13:27 Last Admin: 12/12/19 13:45 Dose: 6 mg Documented by: Enoxaparin Sodium (Lovenox) 30 mg SUBCUT Q24H [facility] Last Admin: 12/12/19 18:41 Dose: Not Given Documented by: Sodium Chloride (Normal Saline) 1,000 mls @ 999 mls/hr IV STAT ONE Stop: 12/12/19 14:25 Last Admin: 12/12/19 13:45 Dose: 999 mls/hr Documented by: Remdesivir 200 mg/ Sodium (Chloride) 250 mls @ 250 mls/hr IV ONETIME ONE Stop: 12/12/19 18:29 Last Admin: 12/12/19 17:46 Dose: 250 mls/hr Documented by: Influenza Virus Vaccine (Pharmacy To Dose - Influenza Vaccine) 1 each IM ONETIME ONE Stop: 12/12/19 17:40 Last Admin: 12/12/19 19:24 Dose: Not Given Documented by: Iopamidol (Isovue Multipack-370 (76%)) 75 ml IVPUSH ONETIME STA Stop: 12/12/19 17:17 Last Admin: 12/12/19 17:35 Dose: 75 ml Documented by: - Exam General: Alert, Oriented, Cooperative, No Acute Distress Lungs: Normal Respiratory Effort, Other (mild rales b/l) Cardiovascular: Regular Rate, Regular Rhythm GI/Abdominal Exam: Normal Bowel Sounds, Soft, Non-Tender, No Distention Extremities: Normal Inspection, No Pedal Edema Sepsis Event Note - Evaluation Sepsis Screening Result: No Definite Risk - Focused Exam Vital Signs: Vital Signs Temp Pulse Resp BP BP BP Pulse Ox 12/13/19 08:00 129/60 12/13/19 07:55 36.6 C 80 16 129/60 91 L 12/13/19 05:42 35.9 C L 78 17 119/57 L 92 L 12/13/19 02:01 36.2 C 81 18 136/64 92 L 12/12/19 22:28 36.4 C 84 18 119/65 92 L - Problem List & Annotations (1) COVID-19 SNOMED Code(s): 197093934 Code(s): U07.1 - COVID-19 Status: Acute Current Visit: Yes (2) Respiratory failure with hypoxia SNOMED Code(s): 30166592122221641 Code(s): J96.91 - RESPIRATORY FAILURE, UNSPECIFIED WITH HYPOXIA Status: Acute Current Visit: Yes (3) Hyponatremia SNOMED Code(s): 95864514 Code(s): E87.1 - HYPO-OSMOLALITY AND HYPONATREMIA Status: Acute Current Visit: Yes (4) Hypertension SNOMED Code(s): 90290717 Code(s): I10 - ESSENTIAL (PRIMARY) HYPERTENSION Status: Chronic Current Visit: Yes - Problem List Review Problem List Initiated/Reviewed/Updated: Yes - My Orders Last 24 Hours: My Active Orders 12/13/19 07:30 Pantoprazole [ProTONIX IV] 40 mg Sodium Chloride 0.9% [Normal Saline] 10 ml IV Q24H 12/13/19 08:15 Acetaminophen [TylenoL] 325 mg PO Q4H PRN - Plan Plan:: Assessment and Plan: 1. Acute hypoxic respiratory failure secondary to COVID19: - Will continue supplemental O2 PRN, Remdesivir, dexamethasone as well as lovenox. Patient on PPI. - Patient consented to Remdesivir after being explained risks including anaphylaxis and hepatitis. - CXR showed RUL opacity. - CT angio: negative for PE but showed hilar adenopathy. Thyroid lesions were noted and recommended to have outpatient ultrasound. These findings were explained to patient. 2. Hyponatremia, improved: - HCTZ held on admission. Will continue to monitor. 3. ITALIA, improved: - Will continue to monitor. Hold nephrotoxic medications. 4. DVT prophylaxis: Lovenox. 5. Past medical history of HTN.
[2019-12-13] MEDS: Dexamethasone 4 MG Tab PO SCH (16:19)
[2019-12-13] MEDS: Enoxaparin 30 MG/0.3 ML Syringe SUBCUT SCH (17:24)
[2019-12-13] MEDS: REMDESIVIR (EUA) 100 MG in Sodium Chloride 0.9% 100 ML IV SCH (17:25)
[2019-12-14 06:35] LABS: CARBON DIOXIDE,CO2 25.1 mmol/L (21.0-32.0); POTASSIUM,K 4.5 mmol/L (3.5-5.1)
[2019-12-14] MEDS: Pantoprazole 40 MG in Sodium Chloride 0.9% 10 ML IV SCH (06:38)
--- NOTE | 2019-12-14 08:54 | PCM.PN ---
- General Info Date of Service: 12/14/19 Subjective Update: Reports SOB and cough is improved. Ambulated around room yesterday and felt well. Tolerating oral diet. - Patient Data Vitals - Most Recent: Last Vital Signs Temp 36.0 C L 12/14/19 04:13 Pulse 71 12/14/19 04:13 Resp 16 12/14/19 04:13 BP 118/59 L 12/14/19 04:13 Pulse Ox 92 L 12/14/19 04:13 Weight - Most Recent: 91.354 kg I&O - Last 24 Hours: Intake & Output 12/13/19 12/14/19 12/14/19 22:59 06:59 14:59 Intake Total 980 400 Output Total 1250 1100 Balance -270 -700 Lab Results Last 24 Hours: Laboratory Results - last 24 hr 12/14/19 12/14/19 Range/Units 05:37 05:37 WBC 4.94 (4.0-11.0) K/uL RBC 4.75 (4.30-5.90) M/uL Hgb 13.1 (12.0-16.0) g/dL Hct 39.1 (36.0-46.0) % MCV 82.3 (80.0-98.0) fL MCH 27.6 (27.0-32.0) pg MCHC 33.5 (31.0-37.0) g/dL RDW Std Deviation 39.1 (28.0-62.0) fl RDW Coeff of Harsh 13 (11.0-15.0) % Plt Count 222 (150-400) K/uL MPV 10.10 (7.40-12.00) fL Neut % (Auto) 67.8 (48.0-80.0) % Lymph % (Auto) 23.5 (16.0-40.0) % [place] % (Auto) 8.5 (0.0-15.0) % Eos % (Auto) 0.0 (0.0-7.0) % Baso % (Auto) 0.2 (0.0-1.5) % Neut # (Auto) 3.4 (1.4-5.7) K/uL Lymph # (Auto) 1.2 (0.6-2.4) K/uL Terry # (Auto) 0.4 (0.0-0.8) K/uL Eos # (Auto) 0.0 (0.0-0.7) K/uL Baso # (Auto) 0.0 (0.0-0.1) K/uL Nucleated RBC % 0.0 /100WBC Nucleated RBCs # 0 K/uL Sodium 134 L (136-145) mmol/L Potassium 4.5 (3.5-5.1) mmol/L Chloride 100 (98-107) mmol/L Carbon Dioxide 25.1 (21.0-32.0) mmol/L BUN 21 H (7.0-18.0) mg/dL Creatinine 1.0 (0.6-1.0) mg/dL Est Cr Clr Drug Dosing 40.21 mL/min Estimated GFR (MDRD) 54.1 ml/min Glucose 156 H (74-106) mg/dL Calcium 9.2 (8.5-10.1) mg/dL Total Bilirubin 0.2 (0.2-1.0) mg/dL AST 31 (15-37) IU/L ALT 35 (14-63) IU/L Alkaline Phosphatase 70 (46-116) U/L Total Protein 6.4 (6.4-8.2) g/dL Albumin 2.5 L (3.4-5.0) g/dL Globulin 3.9 (2.6-4.0) g/dL Albumin/Globulin Ratio 0.6 L (0.9-1.6) Med Orders - Current: Current Medications Acetaminophen (Tylenol) 325 mg PO Q4H PRN PRN Reason: Pain Amlodipine Besylate (Norvasc) 2.5 mg PO DAILY [facility] Last Admin: 12/13/19 08:00 Dose: 2.5 mg Documented by: Dexamethasone (Dexamethasone) 4 mg PO Q24H [facility] Last Admin: 12/13/19 16:19 Dose: 4 mg Documented by: Enoxaparin Sodium (Lovenox) 30 mg SUBCUT Q24H [facility] Last Admin: 12/13/19 17:24 Dose: 30 mg Documented by: Remdesivir 100 mg/ Sodium (Chloride) 100 mls @ 100 mls/hr IV Q24H [facility] Stop: 12/16/19 18:29 Last Admin: 12/13/19 17:25 Dose: 100 mls/hr Documented by: Pantoprazole Sodium 40 mg/ (Sodium Chloride) 10 mls @ 300 mls/hr IV Q24H [facility] Last Admin: 12/14/19 06:38 Dose: 300 mls/hr Documented by: Influenza Virus Vaccine (Fluzone High-Dose Quad ) 240 mcg IM .ONCE ONE Stop: 12/14/19 09:01 Lovastatin (Mevacor) 40 mg PO BEDTIME [facility] Last Admin: 12/13/19 20:25 Dose: 40 mg Documented by: Ondansetron HCl (Zofran) 4 mg IVPUSH Q4H PRN PRN Reason: Nausea Sodium Chloride (Saline Flush) 10 ml FLUSH ASDIRECTED PRN PRN Reason: Keep Vein Open Sodium Chloride (Saline Flush) 2.5 ml FLUSH ASDIRECTED PRN PRN Reason: Keep Vein Open Last Admin: 12/12/19 13:47 Dose: 2.5 ml Documented by: Discontinued Medications Dexamethasone (Dexamethasone) 6 mg PO ONETIME ONE Stop: 12/12/19 13:27 Last Admin: 12/12/19 13:45 Dose: 6 mg Documented by: Enoxaparin Sodium (Lovenox) 30 mg SUBCUT Q24H [facility] Last Admin: 12/12/19 18:41 Dose: Not Given Documented by: Sodium Chloride (Normal Saline) 1,000 mls @ 999 mls/hr IV STAT ONE Stop: 12/12/19 14:25 Last Admin: 12/12/19 13:45 Dose: 999 mls/hr Documented by: Remdesivir 200 mg/ Sodium (Chloride) 250 mls @ 250 mls/hr IV ONETIME ONE Stop: 12/12/19 18:29 Last Admin: 12/12/19 17:46 Dose: 250 mls/hr Documented by: Influenza Virus Vaccine (Pharmacy To Dose - Influenza Vaccine) 1 each IM ONETIME ONE Stop: 12/12/19 17:40 Last Admin: 12/12/19 19:24 Dose: Not Given Documented by: Iopamidol (Isovue Multipack-370 (76%)) 75 ml IVPUSH ONETIME STA Stop: 12/12/19 17:17 Last Admin: 12/12/19 17:35 Dose: 75 ml Documented by: - Exam General: Alert, Oriented, Cooperative, No Acute Distress Lungs: Normal Respiratory Effort, Other (mild crackles b/l) Cardiovascular: Regular Rate, Regular Rhythm GI/Abdominal Exam: Normal Bowel Sounds, Soft, Non-Tender, No Distention Extremities: Other (trace pitting edema b/l) Sepsis Event Note - Evaluation Sepsis Screening Result: No Definite Risk - Focused Exam Vital Signs: Vital Signs Temp Pulse Resp BP Pulse Ox 12/14/19 04:13 36.0 C L 71 16 118/59 L 92 L 12/14/19 00:04 35.6 C L 76 17 112/63 94 L - Problem List & Annotations (1) COVID-19 SNOMED Code(s): 035920919 Code(s): U07.1 - COVID-19 Status: Acute Current Visit: Yes (2) Respiratory failure with hypoxia SNOMED Code(s): 77804322125458699 Code(s): J96.91 - RESPIRATORY FAILURE, UNSPECIFIED WITH HYPOXIA Status: Acute Current Visit: Yes (3) Hyponatremia SNOMED Code(s): 32982974 Code(s): E87.1 - HYPO-OSMOLALITY AND HYPONATREMIA Status: Acute Current Visit: Yes (4) Hypertension SNOMED Code(s): 13116233 Code(s): I10 - ESSENTIAL (PRIMARY) HYPERTENSION Status: Chronic Current Visit: Yes - Problem List Review Problem List Initiated/Reviewed/Updated: Yes - My Orders Last 24 Hours: My Active Orders 12/13/19 08:15 Acetaminophen [TylenoL] 325 mg PO Q4H PRN - Plan Plan:: Assessment and Plan: 1. Acute hypoxic respiratory failure secondary to COVID19: - Will attempt to wean oxygen as tolerated today. Continue Remdesivir, dexamethasone, lovenox and PPI. - Patient consented to Remdesivir after being explained risks including anaphylaxis and hepatitis. - CXR showed RUL opacity. - CT angio: negative for PE but showed hilar adenopathy. Thyroid lesions were noted and recommended to have outpatient ultrasound. These findings were explained to patient. 2. Hyponatremia, improved: - HCTZ held on admission. 3. ITALIA, improved: - Will continue to monitor. 4. DVT prophylaxis: Lovenox. 5. Past medical history of HTN.
[2019-12-14] MEDS: amLODIPine 2.5 MG Tab PO SCH (08:55)
[2019-12-14] MEDS ORDERED: FLU Vacc QV2020-21(65YR UP)/PF 240 MCG/0.7 ML Syringe IM ONE (09:00)
[2019-12-14] MEDS: Enoxaparin 30 MG/0.3 ML Syringe SUBCUT SCH (17:06)
[2019-12-14] MEDS: Dexamethasone 4 MG Tab PO SCH (17:06)
[2019-12-14] MEDS: REMDESIVIR (EUA) 100 MG in Sodium Chloride 0.9% 100 ML IV SCH (18:19)
[2019-12-14] MEDS: Albuterol/Ipratropium 4 GM Inhalation Spray INH PRN (23:47)
[2019-12-15] MEDS: Pantoprazole 40 MG in Sodium Chloride 0.9% 10 ML IV SCH (06:42)
[2019-12-15 07:03] LABS: BLOOD UREA NITROGEN,BUN 22 mg/dL (7.0-18.0); CARBON DIOXIDE,CO2 24.8 mmol/L (21.0-32.0); CHLORIDE,CL 101 mmol/L (98-107); GLUCOSE RANDOM 135 mg/dL (74-106); POTASSIUM,K 4.4 mmol/L (3.5-5.1); SODIUM,NA 134 mmol/L (136-145)
[2019-12-15] MEDS: amLODIPine 2.5 MG Tab PO SCH (08:10)
[2019-12-15] MEDS: Albuterol/Ipratropium 4 GM Inhalation Spray INH PRN (10:01)
--- NOTE | 2019-12-15 10:35 | PCM.PN ---
- General Info Date of Service: 12/15/19 Subjective Update: Reports feeling well this morning and only has mild cough. Denies SOB, fevers, chills, chest pain, nausea or vomiting. - Patient Data Vitals - Most Recent: Last Vital Signs Temp 36.6 C 12/15/19 08:12 Pulse 70 12/15/19 08:12 Resp 17 12/15/19 10:02 BP 135/69 12/15/19 08:12 Pulse Ox 93 L 12/15/19 10:02 Weight - Most Recent: 91.354 kg I&O - Last 24 Hours: Intake & Output 12/14/19 12/15/19 12/15/19 22:59 06:59 14:59 Intake Total 800 1110 Output Total 600 1200 Balance 200 -90 Lab Results Last 24 Hours: Laboratory Results - last 24 hr 12/15/19 12/15/19 Range/Units 06:05 06:05 WBC 5.77 (4.0-11.0) K/uL RBC 4.68 (4.30-5.90) M/uL Hgb 12.9 (12.0-16.0) g/dL Hct 38.3 (36.0-46.0) % MCV 81.8 (80.0-98.0) fL MCH 27.6 (27.0-32.0) pg MCHC 33.7 (31.0-37.0) g/dL RDW Std Deviation 39.4 (28.0-62.0) fl RDW Coeff of Harsh 13 (11.0-15.0) % Plt Count 239 (150-400) K/uL MPV 9.60 (7.40-12.00) fL Neut % (Auto) 69.1 (48.0-80.0) % Lymph % (Auto) 20.6 (16.0-40.0) % [place] % (Auto) 10.1 (0.0-15.0) % Eos % (Auto) 0.0 (0.0-7.0) % Baso % (Auto) 0.2 (0.0-1.5) % Neut # (Auto) 4.0 (1.4-5.7) K/uL Lymph # (Auto) 1.2 (0.6-2.4) K/uL [place] # (Auto) 0.6 (0.0-0.8) K/uL Eos # (Auto) 0.0 (0.0-0.7) K/uL Baso # (Auto) 0.0 (0.0-0.1) K/uL Nucleated RBC % 0.0 /100WBC Nucleated RBCs # 0 K/uL Sodium 134 L (136-145) mmol/L Potassium 4.4 (3.5-5.1) mmol/L Chloride 101 (98-107) mmol/L Carbon Dioxide 24.8 (21.0-32.0) mmol/L BUN 22 H (7.0-18.0) mg/dL Creatinine 0.9 (0.6-1.0) mg/dL Est Cr Clr Drug Dosing 44.68 mL/min Estimated GFR (MDRD) > 60.0 ml/min Glucose 135 H (74-106) mg/dL Calcium 8.8 (8.5-10.1) mg/dL Total Bilirubin 0.2 (0.2-1.0) mg/dL AST 25 (15-37) IU/L ALT 35 (14-63) IU/L Alkaline Phosphatase 67 (46-116) U/L Total Protein 6.2 L (6.4-8.2) g/dL Albumin 2.4 L (3.4-5.0) g/dL Globulin 3.8 (2.6-4.0) g/dL Albumin/Globulin Ratio 0.6 L (0.9-1.6) Med Orders - Current: Current Medications Acetaminophen (Tylenol) 325 mg PO Q4H PRN PRN Reason: Pain Albuterol/Ipratropium (Combivent Respimat) 0 gm INH Q6H PRN PRN Reason: Dyspnea Last Admin: 12/15/19 10:01 Dose: 1 puff Documented by: Amlodipine Besylate (Norvasc) 2.5 mg PO DAILY COUNTS INCLUDE 234 BEDS AT THE [facility] Last Admin: 12/15/19 08:10 Dose: 2.5 mg Documented by: Dexamethasone (Dexamethasone) 4 mg PO Q24H COUNTS INCLUDE 234 BEDS AT THE [facility] Last Admin: 12/14/19 17:06 Dose: 4 mg Documented by: Enoxaparin Sodium (Lovenox) 30 mg SUBCUT Q24H COUNTS INCLUDE 234 BEDS AT THE [facility] Last Admin: 12/14/19 17:06 Dose: 30 mg Documented by: Remdesivir 100 mg/ Sodium (Chloride) 100 mls @ 100 mls/hr IV Q24H [facility] Stop: 12/16/19 18:29 Last Admin: 12/14/19 18:19 Dose: 100 mls/hr Documented by: Pantoprazole Sodium 40 mg/ (Sodium Chloride) 10 mls @ 300 mls/hr IV Q24H COUNTS INCLUDE 234 BEDS AT THE [facility] Last Admin: 12/15/19 06:42 Dose: 300 mls/hr Documented by: Lovastatin (Mevacor) 40 mg PO BEDTIME COUNTS INCLUDE 234 BEDS AT THE [facility] Last Admin: 12/14/19 20:53 Dose: 40 mg Documented by: Ondansetron HCl (Zofran) 4 mg IVPUSH Q4H PRN PRN Reason: Nausea Sodium Chloride (Saline Flush) 10 ml FLUSH ASDIRECTED PRN PRN Reason: Keep Vein Open Sodium Chloride (Saline Flush) 2.5 ml FLUSH ASDIRECTED PRN PRN Reason: Keep Vein Open Last Admin: 12/12/19 13:47 Dose: 2.5 ml Documented by: Discontinued Medications Dexamethasone (Dexamethasone) 6 mg PO ONETIME ONE Stop: 12/12/19 13:27 Last Admin: 12/12/19 13:45 Dose: 6 mg Documented by: Enoxaparin Sodium (Lovenox) 30 mg SUBCUT Q24H COUNTS INCLUDE 234 BEDS AT THE [facility] Last Admin: 12/12/19 18:41 Dose: Not Given Documented by: Sodium Chloride (Normal Saline) 1,000 mls @ 999 mls/hr IV STAT ONE Stop: 12/12/19 14:25 Last Admin: 12/12/19 13:45 Dose: 999 mls/hr Documented by: Remdesivir 200 mg/ Sodium (Chloride) 250 mls @ 250 mls/hr IV ONETIME ONE Stop: 12/12/19 18:29 Last Admin: 12/12/19 17:46 Dose: 250 mls/hr Documented by: Influenza Virus Vaccine (Pharmacy To Dose - Influenza Vaccine) 1 each IM ONETIME ONE Stop: 12/12/19 17:40 Last Admin: 12/12/19 19:24 Dose: Not Given Documented by: Influenza Virus Vaccine (Fluzone High-Dose Quad ) 240 mcg IM .ONCE ONE Stop: 12/14/19 09:01 Iopamidol (Isovue Multipack-370 (76%)) 75 ml IVPUSH ONETIME STA Stop: 12/12/19 17:17 Last Admin: 12/12/19 17:35 Dose: 75 ml Documented by: - Exam General: Alert, Oriented, Cooperative Lungs: Clear to Auscultation, Normal Respiratory Effort Cardiovascular: Regular Rate, Regular Rhythm GI/Abdominal Exam: Normal Bowel Sounds, Soft, Non-Tender, No Distention Extremities: Normal Inspection, No Pedal Edema Sepsis Event Note - Evaluation Sepsis Screening Result: No Definite Risk - Focused Exam Vital Signs: Vital Signs Temp Pulse Resp BP BP Pulse Ox 12/15/19 10:02 17 93 L 12/15/19 08:12 36.6 C 70 17 135/69 94 L 12/15/19 08:10 135/69 12/15/19 03:35 36.2 C 70 16 142/69 H 93 L 12/14/19 23:44 36.3 C 72 17 146/74 H 93 L - Problem List & Annotations (1) COVID-19 SNOMED Code(s): 938034241 Code(s): U07.1 - COVID-19 Status: Acute (2) Respiratory failure with hypoxia SNOMED Code(s): 43135950073309265 Code(s): J96.91 - RESPIRATORY FAILURE, UNSPECIFIED WITH HYPOXIA Status: Acute (3) Hyponatremia SNOMED Code(s): 46084336 Code(s): E87.1 - HYPO-OSMOLALITY AND HYPONATREMIA Status: Acute (4) Hypertension SNOMED Code(s): 61939964 Code(s): I10 - ESSENTIAL (PRIMARY) HYPERTENSION Status: Chronic - Problem List Review Problem List Initiated/Reviewed/Updated: Yes - Plan Plan:: Assessment and Plan: 1. Acute hypoxic respiratory failure secondary to COVID19: - Continue to wean oxygen today. Will continue Remdesivir, dexamethasone, lovenox and PPI. - Patient consented to Remdesivir after being explained risks including anaphylaxis and hepatitis. - CXR showed RUL opacity. - CT angio: negative for PE but showed hilar adenopathy. Thyroid lesions were noted and recommended to have outpatient ultrasound. These findings were explained to patient. 2. Hyponatremia, mild: - Hyponatremia improved since admission. HCTZ held on admission. 3. ITALIA, improved: 4. DVT prophylaxis: Lovenox. 5. Past medical history of HTN.
--- NOTE | 2019-12-15 12:03 | PCM.DCSUM1 ---
<Van Lopez - Last Filed: 12/16/19 15:23> Discharge Summary - Hospital Course Free Text/Narrative:: 74-year-old female admitted for acute hypoxic respiratory failure secondary to COVID-19. She has a PMH of HTN. CXR showed RUL opacity. CT angio was negative for PE but showed hilar adenopathy and thyroid lesions. Outpatient ultrasound was recommended. Patient made aware of the CT findings and recommended further follow-up with her PCP. Patient was treated with supplemental oxygen, r emdesivir, dexamethasone and lovenox. She was also found to have mild hyponatremia and ITALIA which improved throughout her hospital course. Patient successfully weaned off of oxygen to room air on day of discharge. She was provided scripts for dexamethasone, PPI and Tessalon pearls. Advised to continue to self-isolate on discharge. - Discharge Data Discharge Date: 12/15/19 Discharge Disposition: Home, Self-Care 01 Condition: Stable - Referral to Home Health Primary Care Physician: Ngiel Moore MD - Discharge Diagnosis/Problem(s) (1) COVID-19 SNOMED Code(s): 896977135 ICD Code: U07.1 - COVID-19 Status: Acute (2) Respiratory failure with hypoxia SNOMED Code(s): 88528828939568096 ICD Code: J96.91 - RESPIRATORY FAILURE, UNSPECIFIED WITH HYPOXIA Status: Acute (3) Hyponatremia SNOMED Code(s): 29817627 ICD Code: E87.1 - HYPO-OSMOLALITY AND HYPONATREMIA Status: Acute (4) Hypertension SNOMED Code(s): 63850397 ICD Code: I10 - ESSENTIAL (PRIMARY) HYPERTENSION Status: Chronic - Patient Instructions Diet: Usual Diet as Tolerated Activity: As Tolerated Notify Provider of: Fever, Increased Pain, Swelling and Redness, Drainage, Nausea and/or Vomiting Other/Special Instructions: worsening shortness of breath - Discharge Plan *PRESCRIPTION DRUG MONITORING PROGRAM REVIEWED*: Not Applicable *COPY OF PRESCRIPTION DRUG MONITORING REPORT IN PATIENT BRITTNEY: Not Applicable Prescriptions/Med Rec: dexAMETHasone [Dexamethasone] 4 mg PO Q24H 8 Days #8 tablet Pantoprazole [ProTONIX] 40 mg PO DAILY 8 Days #8 tab.cr Benzonatate [Tessalon Perle] 100 mg PO TID PRN 4 Days #12 capsule PRN Reason: Cough Home Medications: Home Meds Lisinopril/Hydrochlorothiazide [Lisinopril-Hctz 20-25 mg Tab] 20 - 25 mg PO DAILY 07/07/15 [History] Lovastatin 40 mg PO DAILY 07/07/15 [History] amLODIPine [Norvasc] 2.5 mg PO DAILY 07/07/15 [History] Benzonatate [Tessalon Perle] 100 mg PO TID PRN 4 Days #12 capsule 12/15/19 [Rx] Pantoprazole [ProTONIX] 40 mg PO DAILY 8 Days #8 tab.cr 12/15/19 [Rx] dexAMETHasone [Dexamethasone] 4 mg PO Q24H 8 Days #8 tablet 12/15/19 [Rx] Oxygen Therapy Mode: Room Air Patient Handouts: COVID-19 Frequently Asked Questions, COVID-19, COVID-19: How to Protect Yourself and Others - CDC, Pantoprazole tablets, Dexamethasone tablets, Benzonatate capsules Referrals: Nigel Moore MD [Primary Care Provider] - 12/27/19 1:45 pm (Please arrive 15 minutes early with your identification, insurance card and your own facemask.) - Discharge Summary/Plan Comment DC Time >30 min.: No - Patient Data Vitals - Most Recent: Last Vital Signs Temp 36.6 C 12/15/19 08:12 Pulse 70 12/15/19 08:12 Resp 17 12/15/19 10:02 BP 135/69 12/15/19 08:12 Pulse Ox 93 L 12/15/19 10:02 Weight - Most Recent: 91.354 kg I&O - Last 24 hours: Intake & Output 12/14/19 12/15/19 12/15/19 22:59 06:59 14:59 Intake Total 800 1110 Output Total 600 1200 Balance 200 -90 Lab Results - Last 24 hrs: Laboratory Results - last 24 hr 12/15/19 12/15/19 Range/Units 06:05 06:05 WBC 5.77 (4.0-11.0) K/uL RBC 4.68 (4.30-5.90) M/uL Hgb 12.9 (12.0-16.0) g/dL Hct 38.3 (36.0-46.0) % MCV 81.8 (80.0-98.0) fL MCH 27.6 (27.0-32.0) pg MCHC 33.7 (31.0-37.0) g/dL RDW Std Deviation 39.4 (28.0-62.0) fl RDW Coeff of Harsh 13 (11.0-15.0) % Plt Count 239 (150-400) K/uL MPV 9.60 (7.40-12.00) fL Neut % (Auto) 69.1 (48.0-80.0) % Lymph % (Auto) 20.6 (16.0-40.0) % [place] % (Auto) 10.1 (0.0-15.0) % Eos % (Auto) 0.0 (0.0-7.0) % Baso % (Auto) 0.2 (0.0-1.5) % Neut # (Auto) 4.0 (1.4-5.7) K/uL Lymph # (Auto) 1.2 (0.6-2.4) K/uL [place] # (Auto) 0.6 (0.0-0.8) K/uL Eos # (Auto) 0.0 (0.0-0.7) K/uL Baso # (Auto) 0.0 (0.0-0.1) K/uL Nucleated RBC % 0.0 /100WBC Nucleated RBCs # 0 K/uL Sodium 134 L (136-145) mmol/L Potassium 4.4 (3.5-5.1) mmol/L Chloride 101 (98-107) mmol/L Carbon Dioxide 24.8 (21.0-32.0) mmol/L BUN 22 H (7.0-18.0) mg/dL Creatinine 0.9 (0.6-1.0) mg/dL Est Cr Clr Drug Dosing 44.68 mL/min Estimated GFR (MDRD) > 60.0 ml/min Glucose 135 H (74-106) mg/dL Calcium 8.8 (8.5-10.1) mg/dL Total Bilirubin 0.2 (0.2-1.0) mg/dL AST 25 (15-37) IU/L ALT 35 (14-63) IU/L Alkaline Phosphatase 67 (46-116) U/L Total Protein 6.2 L (6.4-8.2) g/dL Albumin 2.4 L (3.4-5.0) g/dL Globulin 3.8 (2.6-4.0) g/dL Albumin/Globulin Ratio 0.6 L (0.9-1.6) Med Orders - Current: Current Medications Acetaminophen (Tylenol) 325 mg PO Q4H PRN PRN Reason: Pain Albuterol/Ipratropium (Combivent Respimat) 0 gm INH Q6H PRN PRN Reason: Dyspnea Last Admin: 12/15/19 10:01 Dose: 1 puff Documented by: Amlodipine Besylate (Norvasc) 2.5 mg PO DAILY [facility] Last Admin: 12/15/19 08:10 Dose: 2.5 mg Documented by: Dexamethasone (Dexamethasone) 4 mg PO Q24H [facility] Last Admin: 12/14/19 17:06 Dose: 4 mg Documented by: Enoxaparin Sodium (Lovenox) 30 mg SUBCUT Q24H [facility] Last Admin: 12/14/19 17:06 Dose: 30 mg Documented by: Remdesivir 100 mg/ Sodium (Chloride) 100 mls @ 100 mls/hr IV Q24H [facility] Stop: 12/16/19 18:29 Last Admin: 12/14/19 18:19 Dose: 100 mls/hr Documented by: Pantoprazole Sodium 40 mg/ (Sodium Chloride) 10 mls @ 300 mls/hr IV Q24H [facility] Last Admin: 12/15/19 06:42 Dose: 300 mls/hr Documented by: Lovastatin (Mevacor) 40 mg PO BEDTIME [facility] Last Admin: 12/14/19 20:53 Dose: 40 mg Documented by: Ondansetron HCl (Zofran) 4 mg IVPUSH Q4H PRN PRN Reason: Nausea Sodium Chloride (Saline Flush) 10 ml FLUSH ASDIRECTED PRN PRN Reason: Keep Vein Open Sodium Chloride (Saline Flush) 2.5 ml FLUSH ASDIRECTED PRN PRN Reason: Keep Vein Open Last Admin: 12/12/19 13:47 Dose: 2.5 ml Documented by: Discontinued Medications Dexamethasone (Dexamethasone) 6 mg PO ONETIME ONE Stop: 12/12/19 13:27 Last Admin: 12/12/19 13:45 Dose: 6 mg Documented by: Enoxaparin Sodium (Lovenox) 30 mg SUBCUT Q24H [facility] Last Admin: 12/12/19 18:41 Dose: Not Given Documented by: Sodium Chloride (Normal Saline) 1,000 mls @ 999 mls/hr IV STAT ONE Stop: 12/12/19 14:25 Last Admin: 12/12/19 13:45 Dose: 999 mls/hr Documented by: Remdesivir 200 mg/ Sodium (Chloride) 250 mls @ 250 mls/hr IV ONETIME ONE Stop: 12/12/19 18:29 Last Admin: 12/12/19 17:46 Dose: 250 mls/hr Documented by: Influenza Virus Vaccine (Pharmacy To Dose - Influenza Vaccine) 1 each IM ONETIME ONE Stop: 12/12/19 17:40 Last Admin: 12/12/19 19:24 Dose: Not Given Documented by: Influenza Virus Vaccine (Fluzone High-Dose Quad ) 240 mcg IM .ONCE ONE Stop: 12/14/19 09:01 Iopamidol (Isovue Multipack-370 (76%)) 75 ml IVPUSH ONETIME STA Stop: 12/12/19 17:17 Last Admin: 12/12/19 17:35 Dose: 75 ml Documented by: <Gabino Hernandez - Last Filed: 12/16/19 22:03> Discharge Summary - Referral to Home Health Primary Care Physician: Nigel Moore MD - Discharge Diagnosis/Problem(s) (1) COVID-19 SNOMED Code(s): 462071475 ICD Code: U07.1 - COVID-19 Status: Acute (2) Respiratory failure with hypoxia SNOMED Code(s): 64802038571360676 ICD Code: J96.91 - RESPIRATORY FAILURE, UNSPECIFIED WITH HYPOXIA Status: Acute (3) ITALIA (acute kidney injury) SNOMED Code(s): 15735513, 98622299 ICD Code: N17.9 - ACUTE KIDNEY FAILURE, UNSPECIFIED Status: Acute (4) Hypertension SNOMED Code(s): 52877589 ICD Code: I10 - ESSENTIAL (PRIMARY) HYPERTENSION Status: Chronic (5) Hyponatremia SNOMED Code(s): 61369767 ICD Code: E87.1 - HYPO-OSMOLALITY AND HYPONATREMIA Status: Acute - Patient Data Vitals - Most Recent: Last Vital Signs Temp 36.6 C 12/15/19 12:11 Pulse 80 12/15/19 12:11 Resp 17 12/15/19 12:11 BP 144/65 H 12/15/19 12:11 Pulse Ox 93 L 12/15/19 12:11 Med Orders - Current: Current Medications Discontinued Medications Acetaminophen (Tylenol) 325 mg PO Q4H PRN PRN Reason: Pain Albuterol/Ipratropium (Combivent Respimat) 0 gm INH Q6H PRN PRN Reason: Dyspnea Last Admin: 12/15/19 10:01 Dose: 1 puff Documented by: Amlodipine Besylate (Norvasc) 2.5 mg PO DAILY [facility] Last Admin: 12/15/19 08:10 Dose: 2.5 mg Documented by: Dexamethasone (Dexamethasone) 6 mg PO ONETIME ONE Stop: 12/12/19 13:27 Last Admin: 12/12/19 13:45 Dose: 6 mg Documented by: Dexamethasone (Dexamethasone) 4 mg PO Q24H [facility] Last Admin: 12/14/19 17:06 Dose: 4 mg Documented by: Enoxaparin Sodium (Lovenox) 30 mg SUBCUT Q24H [facility] Last Admin: 12/12/19 18:41 Dose: Not Given Documented by: Enoxaparin Sodium (Lovenox) 30 mg SUBCUT Q24H [facility] Last Admin: 12/14/19 17:06 Dose: 30 mg Documented by: Sodium Chloride (Normal Saline) 1,000 mls @ 999 mls/hr IV STAT ONE Stop: 12/12/19 14:25 Last Admin: 12/12/19 13:45 Dose: 999 mls/hr Documented by: Remdesivir 100 mg/ Sodium (Chloride) 100 mls @ 100 mls/hr IV Q24H [facility] Stop: 12/16/19 18:29 Last Admin: 12/14/19 18:19 Dose: 100 mls/hr Documented by: Remdesivir 200 mg/ Sodium (Chloride) 250 mls @ 250 mls/hr IV ONETIME ONE Stop: 12/12/19 18:29 Last Admin: 12/12/19 17:46 Dose: 250 mls/hr Documented by: Pantoprazole Sodium 40 mg/ (Sodium Chloride) 10 mls @ 300 mls/hr IV Q24H [facility] Last Admin: 12/15/19 06:42 Dose: 300 mls/hr Documented by: Influenza Virus Vaccine (Pharmacy To Dose - Influenza Vaccine) 1 each IM ONETIME ONE Stop: 12/12/19 17:40 Last Admin: 12/12/19 19:24 Dose: Not Given Documented by: Influenza Virus Vaccine (Fluzone High-Dose Quad ) 240 mcg IM .ONCE ONE Stop: 12/14/19 09:01 Last Admin: 12/15/19 14:00 Dose: Not Given Documented by: Iopamidol (Isovue Multipack-370 (76%)) 75 ml IVPUSH ONETIME STA Stop: 12/12/19 17:17 Last Admin: 12/12/19 17:35 Dose: 75 ml Documented by: Lovastatin (Mevacor) 40 mg PO BEDTIME [facility] Last Admin: 12/14/19 20:53 Dose: 40 mg Documented by: Ondansetron HCl (Zofran) 4 mg IVPUSH Q4H PRN PRN Reason: Nausea Sodium Chloride (Saline Flush) 10 ml FLUSH ASDIRECTED PRN PRN Reason: Keep Vein Open Sodium Chloride (Saline Flush) 2.5 ml FLUSH ASDIRECTED PRN PRN Reason: Keep Vein Open Last Admin: 12/12/19 13:47 Dose: 2.5 ml Documented by: - Free Text/Narrative Note: I have seen and evaluated the patient. I have discussed findings and treatment plan with resident. I agree with the assessment and plan in the following note.
[2019-12-15 12:12] VITALS: BP 144/65; PULSE 80
== END 2019-12-15 13:30 | disposition home or self-care (01) | DRG 177 ==
LOC: MW.ED 12:51 → MW.MS 15:22
PROVIDERS: ADMIT Internal Medicine; ATTEND Internal Medicine
PROC: XW033E5 Introduction of Remdesivir Anti-infective into Peripheral Vein, Percutaneous Approach, New Technology Group 5 (ICD-10-PCS; principal; 2019-12-12)
DX: U07.1 COVID-19 (principal); J96.01 Acute respiratory failure with hypoxia; H54.7 Unspecified visual loss; E87.1 Hypo-osmolality and hyponatremia; N17.9 Acute kidney failure, unspecified; Z86.010 Personal history of colon polyps; R59.0 Localized enlarged lymph nodes; I10 Essential (primary) hypertension; J30.9 Allergic rhinitis, unspecified; E78.00 Pure hypercholesterolemia, unspecified; E66.9 Obesity, unspecified; Z88.0 Allergy status to penicillin; Z79.899 Other long term (current) drug therapy; Z90.710 Acquired absence of both cervix and uterus
CPT/HCPCS: 36415; 71045; 71275; 80053; 83735; 84484; 85025; 85379; 93005; 99285; J7030; J8540; U0002; 80048; 81003; 82570; 84300; 93010; 99222; 99231; 99232; 99238; A9270-GY; C9113; J1650; J7050; Q9967

== ENCOUNTER 2020-01-04 16:16 | Observation (INO) | payer MEDICARE, BC ==
--- NOTE | 2020-01-04 16:31 | EDM.PDOC ---
ED HPI GENERAL MEDICAL PROBLEM - General Chief Complaint: Respiratory Problem Stated Complaint: COVID, HIGH HEART RATE, LOW OXYGEN Time Seen by Provider: 01/04/20 16:28 Source of Information: Reports: Patient History Limitations: Reports: No Limitations - History of Present Illness INITIAL COMMENTS - FREE TEXT/NARRATIVE: HISTORY AND PHYSICAL: History of present illness: Patient is a 74-year-old female who presents to the emergency room with complaints of shortness of breath, chest pain and fatigue. She states she was seen in our emergency room on 12/11/2020 she had a week long history of fatigue, headache and cough. At that time she was requiring oxygen to keep her oxygen saturation above 90%. She was admitted for COVID-19 and kept in the hospital for several days. Received Remdesivir, dexamethasone, and lovenox while in the ED. She states she continues to have symptoms, although has been worse over the past 24 hours. She does have a home oxygen monitor, has been sating 89% on room air at rest. She has also noted that her pulse has been in the 110-120's. Patient denies any fever, chills, headache, change in vision, syncope or near syncope. Denies any hemoptysis, abdominal pain, nausea, vomiting, diarrhea, constipation or dysuria. Has not noted any blood in urine or stool. Patient has been eating and drinking appropriately. Past medical history of hypertension, elevated cholesterol, past hysterectomy. Review of systems: As per history of present illness and below otherwise all systems reviewed and negative. Past medical history: As per history of present illness and as reviewed below otherwise noncontributory. Surgical history: As per history of present illness and as reviewed below otherwise noncontributory. Social history: See social history for further information Family history: As per history of present illness and as reviewed below otherwise noncontributory. Physical exam: General: Well developed and well nourished. Alert and orientated x 3. Nontoxic in appearance and in no acute distress. Vital signs are stable and have been reviewed by me. Nursing notes were reviewed. HEENT: Atraumatic, normocephalic, pupils equal and reactive bilaterally, negative for conjunctival pallor or scleral icterus, mucous membranes moist, TMs normal bilaterally, throat clear, neck supple, nontender, trachea midline. No drooling or trismus noted. No meningeal signs. No hot potato voice noted. Lungs: Clear to auscultation, breath sounds equal bilaterally, chest nontender. Normal work of breathing, no accessory muscles used. Heart: S1S2, regular rate and rhythm without overt murmur Abdomen: Soft, nondistended, nontender. Negative for masses or hepatosplenomegaly. Negative for costovertebral tenderness. Skin: Intact, warm, dry. No lesions or rashes noted. Hematologic: No petechiae or purpra. Mucosa appropriate color and normal nail bed color and refill. Extremities: Atraumatic, moves all extremities per self without difficulty or deficits, negative for cords or calf pain. Neurovascular unremarkable. Neuro: Awake, alert, oriented. Cranial nerves II through XII unremarkable. Cerebellum unremarkable. Motor and sensory unremarkable throughout. Exam nonfocal. Psychiatric: Mood and affect are appropriate. Normal thought process. Answering questions appropriately. Notes: Upon arrival of the patient's oxygen saturation is between 90 and 94% on room air. COVID-19 precautions placed as she recently had a positive within the last 1 month. Chest x-ray shows a chronic interstitial changes with residual airspace opacity in the right upper lobe likely representing an infiltrate. Lab work shows she has a D-dimer of 4.4. CTA of the chest has been ordered. Repeat COVID-[address] angio chest shows changing pattern of bilateral groundglass infiltrates, with improvement in previously seen areas of infiltrate but numerous small new foci of infiltrate in both lungs. Findings may represent persistent COVID-19 pneumonia. Unchanged mild mediastinal hilar lymphadenopathy. No PE is identified. I have talked with the patient about today's findings, in addition to providing specific details for plan of care. Reassessment at the time of disposition demonstrates that the patient is in no acute distress, but her oxygen saturation remains at 89 to 90%. 2 L per nasal cannula was reapplied. Dr. Hernandez, hospitalist on-call was consulted on this case. He is agreeable that patient should be admitted for further care and management. Diagnostics: CBC, CMP, D.Dimer, Troponin, EKG, CXR, lactate, CT angio chest Therapeutics: Oxygen, IV fluids, Rocephin, azithromycin Impression: Pneumonia Plan: Observation admission with telemetry Definitive disposition and diagnosis as appropriate pending reevaluation and review of above. - Related Data Allergies Allergy/AdvReac Type Severity Reaction Status Date / Time Penicillins Allergy Rash Verified 01/04/20 16:18 Home Meds: Home Meds Lisinopril/Hydrochlorothiazide [Lisinopril-Hctz 20-25 mg Tab] 20 - 25 mg PO DAILY 07/07/15 [History] Lovastatin 40 mg PO DAILY 07/07/15 [History] amLODIPine [Norvasc] 2.5 mg PO DAILY 07/07/15 [History] Benzonatate [Tessalon Perle] 100 mg PO TID PRN 4 Days #12 capsule 12/15/19 [Rx] Pantoprazole [ProTONIX] 40 mg PO DAILY 8 Days #8 tab.cr 12/15/19 [Rx] dexAMETHasone [Dexamethasone] 4 mg PO Q24H 8 Days #8 tablet 12/15/19 [Rx] Past Medical History HEENT History: Reports: Allergic Rhinitis Other HEENT History: wears glasses Cardiovascular History: Reports: High Cholesterol, Hypertension Respiratory History: Reports: None Gastrointestinal History: Reports: Colon Polyp Genitourinary History: Reports: None [employer] History: Reports: None Musculoskeletal History: Reports: None Neurological History: Reports: None Psychiatric History: Reports: None Endocrine/Metabolic History: Reports: Obesity/BMI 30+ Hematologic History: Reports: None Immunologic History: Reports: None Oncologic (Cancer) History: Reports: None Dermatologic History: Reports: None - Infectious Disease History Infectious Disease History: Reports: Chicken Pox, Measles, Mumps, Novel Coronavirus - Past Surgical History Head Surgeries/Procedures: Reports: None HEENT Surgical History: Reports: Tonsillectomy Cardiovascular Surgical History: Reports: None Respiratory Surgical History: Reports: None GI Surgical History: Reports: Colonoscopy Female Surgical History: Reports: Hysterectomy Endocrine Surgical History: Reports: None Neurological Surgical History: Reports: None Musculoskeletal Surgical History: Reports: None Oncologic Surgical History: Reports: None Social & Family History - Family History Family Medical History: No Pertinent Family History - Tobacco Use Tobacco Use Status *Q: Never Tobacco User - Caffeine Use Caffeine Use: Reports: None - Recreational Drug Use Recreational Drug Use: No ED ROS GENERAL - Review of Systems Review Of Systems: Comprehensive ROS is negative, except as noted in HPI. ED EXAM, GENERAL - Physical Exam Exam: See Below (See dictation) Course - Vital Signs Last Recorded V/S: Last Vital Signs Temp 97.8 F 01/04/20 16:19 Pulse 102 H 01/04/20 20:22 Resp 16 01/04/20 20:22 BP 132/57 L 01/04/20 20:22 Pulse Ox 94 L 01/04/20 20:22 - Orders/Labs/Meds Orders: Active Orders 24 hr Category Date Time Status Admission Status [Patient Status] [ADT] Stat ADT 01/04/20 19:43 Active EKG Documentation Completion [RC] STAT Care 01/04/20 16:32 Active Oxygen Therapy, ED [RC] ASDIRECTED Care 01/04/20 16:32 Active CULTURE BLOOD [BC] Stat Lab 01/04/20 19:51 Received CULTURE BLOOD [BC] Stat Lab 01/04/20 19:55 Received Sodium Chloride 0.9% [Saline Flush] Med 01/04/20 16:32 Active 10 ml FLUSH ASDIRECTED PRN Sodium Chloride 0.9% [Saline Flush] Med 01/04/20 16:32 Active 2.5 ml FLUSH ASDIRECTED PRN Blood Culture x2 Reflex Set [OM.PC] Stat Oth 01/04/20 19:34 Ordered Saline Lock Insert [OM.PC] Stat Oth 01/04/20 16:32 Ordered Medication Orders Sodium Chloride (Saline Flush) 10 ml FLUSH ASDIRECTED PRN PRN Reason: Keep Vein Open Last Admin: 01/04/20 17:34 Dose: 10 ml Documented by: YAZ Sodium Chloride (Saline Flush) 2.5 ml FLUSH ASDIRECTED PRN PRN Reason: Keep Vein Open Last Admin: 01/04/20 17:34 Dose: 2.5 ml Documented by: YAZ Labs: Laboratory Tests 01/04/20 01/04/20 01/04/20 Range/Units 16:31 16:31 16:31 WBC 10.02 (4.0-11.0) K/uL RBC 4.74 (4.30-5.90) M/uL Hgb 13.2 (12.0-16.0) g/dL Hct 38.8 (36.0-46.0) % MCV 81.9 (80.0-98.0) fL MCH 27.8 (27.0-32.0) pg MCHC 34.0 (31.0-37.0) g/dL RDW Std Deviation 41.8 (28.0-62.0) fl RDW Coeff of Harsh 14 (11.0-15.0) % Plt Count 231 (150-400) K/uL MPV 8.60 (7.40-12.00) fL Neut % (Auto) 56.9 (48.0-80.0) % Lymph % (Auto) 28.6 (16.0-40.0) % Marion % (Auto) 10.4 (0.0-15.0) % Eos % (Auto) 3.9 (0.0-7.0) % Baso % (Auto) 0.2 (0.0-1.5) % Neut # (Auto) 5.7 (1.4-5.7) K/uL Lymph # (Auto) 2.9 H (0.6-2.4) K/uL Marion # (Auto) 1.0 H (0.0-0.8) K/uL Eos # (Auto) 0.4 (0.0-0.7) K/uL Baso # (Auto) 0.0 (0.0-0.1) K/uL Nucleated RBC % 0.0 /100WBC Nucleated RBCs # 0 K/uL D-Dimer, Quantitative (0.0-0.50) mg/L FEU VBG pH 7.43 H (7.31-7.41) VBG pCO2 38 (35-45) mmHG VBG pO2 33 (30-40) mmHG VBG HCO3 25 (22-30) mEq/L VBG Total CO2 23 L (41-51) mmol/L VBG Base Excess 0.7 (-3.0-3.0) Lactate (0.20-2.00) mmol/L Sodium 129 L (136-145) mmol/L Potassium 3.4 L (3.5-5.1) mmol/L Chloride 94 L (98-107) mmol/L Carbon Dioxide 23.5 (21.0-32.0) mmol/L BUN 10 (7.0-18.0) mg/dL Creatinine 1.1 H (0.6-1.0) mg/dL Est Cr Clr Drug Dosing 34.95 mL/min Estimated GFR (MDRD) 48.4 ml/min Glucose 98 (74-106) mg/dL Calcium 9.1 (8.5-10.1) mg/dL Total Bilirubin 0.4 (0.2-1.0) mg/dL AST 24 (15-37) IU/L ALT 35 (14-63) IU/L Alkaline Phosphatase 87 (46-116) U/L Troponin I < 0.050 (0.000-0.056) ng/mL Total Protein 7.7 (6.4-8.2) g/dL Albumin 2.4 L (3.4-5.0) g/dL Globulin 5.3 H (2.6-4.0) g/dL Albumin/Globulin Ratio 0.5 L (0.9-1.6) SARS-CoV-2 RNA (APRIL) (NEGATIVE) 01/04/20 01/04/20 01/04/20 Range/Units 16:31 16:31 16:39 WBC (4.0-11.0) K/uL RBC (4.30-5.90) M/uL Hgb (12.0-16.0) g/dL Hct (36.0-46.0) % MCV (80.0-98.0) fL MCH (27.0-32.0) pg MCHC (31.0-37.0) g/dL RDW Std Deviation (28.0-62.0) fl RDW Coeff of Harsh (11.0-15.0) % Plt Count (150-400) K/uL MPV (7.40-12.00) fL Neut % (Auto) (48.0-80.0) % Lymph % (Auto) (16.0-40.0) % Marion % (Auto) (0.0-15.0) % Eos % (Auto) (0.0-7.0) % Baso % (Auto) (0.0-1.5) % Neut # (Auto) (1.4-5.7) K/uL Lymph # (Auto) (0.6-2.4) K/uL Marion # (Auto) (0.0-0.8) K/uL Eos # (Auto) (0.0-0.7) K/uL Baso # (Auto) (0.0-0.1) K/uL Nucleated RBC % /100WBC Nucleated RBCs # K/uL D-Dimer, Quantitative 4.38 H (0.0-0.50) mg/L FEU VBG pH (7.31-7.41) VBG pCO2 (35-45) mmHG VBG pO2 (30-40) mmHG VBG HCO3 (22-30) mEq/L VBG Total CO2 (41-51) mmol/L VBG Base Excess (-3.0-3.0) Lactate 1.5 (0.20-2.00) mmol/L Sodium (136-145) mmol/L Potassium (3.5-5.1) mmol/L Chloride (98-107) mmol/L Carbon Dioxide (21.0-32.0) mmol/L BUN (7.0-18.0) mg/dL Creatinine (0.6-1.0) mg/dL Est Cr Clr Drug Dosing mL/min Estimated GFR (MDRD) ml/min Glucose (74-106) mg/dL Calcium (8.5-10.1) mg/dL Total Bilirubin (0.2-1.0) mg/dL AST (15-37) IU/L ALT (14-63) IU/L Alkaline Phosphatase (46-116) U/L Troponin I (0.000-0.056) ng/mL Total Protein (6.4-8.2) g/dL Albumin (3.4-5.0) g/dL Globulin (2.6-4.0) g/dL Albumin/Globulin Ratio (0.9-1.6) SARS-CoV-2 RNA (APRIL) NEGATIVE (NEGATIVE) Meds: Medications Generic Name Dose Route Start Last Admin Trade Name Freq PRN Reason Stop Dose Admin Sodium Chloride 10 ml 01/04/20 16:32 01/04/20 17:34 Saline Flush FLUSH 10 ml ASDIRECTED PRN Administration Keep Vein Open Sodium Chloride 2.5 ml 01/04/20 16:32 01/04/20 17:34 Saline Flush FLUSH 2.5 ml ASDIRECTED PRN Administration Keep Vein Open Discontinued Medications Generic Name Dose Route Start Last Admin Trade Name Freq PRN Reason Stop Dose Admin Azithromycin 500 mg 01/04/20 19:34 01/04/20 19:56 Zithromax PO 01/04/20 19:35 500 mg NOW STA Administration Sodium Chloride 1,000 mls @ 999 mls/hr 01/04/20 17:26 01/04/20 17:33 Normal Saline IV 01/04/20 18:26 999 mls/hr STAT ONE Administration Ceftriaxone Sodium/Dextrose 1 50 mls @ 100 mls/hr 01/04/20 19:34 01/04/20 19:56 gm/ Premix IV 01/04/20 20:03 100 mls/hr ONETIME ONE Administration Iopamidol 100 ml 01/04/20 18:26 01/04/20 18:26 Isovue Multipack-370 (76%) IVPUSH 01/04/20 18:27 100 ml ONETIME ONE Administration Departure - Departure Time of Disposition: 21:23 Disposition: Refer to Observation Clinical Impression: Pneumonia Qualifiers: Pneumonia type: due to unspecified organism Laterality: bilateral Lung location: unspecified part of lung Qualified Code(s): J18.9 - Pneumonia, unspecified organism - Discharge Information Referrals: Nigel Moore MD [Primary Care Provider] - Forms: ED Department Discharge Sepsis Event Note (ED) - Evaluation Sepsis Screening Result: No Definite Risk - Focused Exam Vital Signs: Vital Signs Temp Pulse Resp BP Pulse Ox 01/04/20 20:22 102 H 16 132/57 L 94 L 01/04/20 19:24 100 20 137/62 95 01/04/20 18:52 107 H 16 137/66 92 L 01/04/20 17:52 102 H 18 137/60 93 L 01/04/20 17:35 108 H 20 135/60 95 01/04/20 16:19 97.8 F 120 H 20 148/78 H 94 L - My Orders Last 24 Hours: My Active Orders 01/04/20 16:32 EKG Documentation Completion [RC] STAT Oxygen Therapy, ED [RC] ASDIRECTED Sodium Chloride 0.9% [Saline Flush] 10 ml FLUSH ASDIRECTED PRN Sodium Chloride 0.9% [Saline Flush] 2.5 ml FLUSH ASDIRECTED PRN Saline Lock Insert [OM.PC] Stat 01/04/20 19:34 Blood Culture x2 Reflex Set [OM.PC] Stat 01/04/20 19:43 Admission Status [Patient Status] [ADT] Stat 01/04/20 19:51 CULTURE BLOOD [BC] Stat 01/04/20 19:55 CULTURE BLOOD [BC] Stat - Assessment/Plan Last 24 Hours: My Active Orders 01/04/20 16:32 EKG Documentation Completion [RC] STAT Oxygen Therapy, ED [RC] ASDIRECTED Sodium Chloride 0.9% [Saline Flush] 10 ml FLUSH ASDIRECTED PRN Sodium Chloride 0.9% [Saline Flush] 2.5 ml FLUSH ASDIRECTED PRN Saline Lock Insert [OM.PC] Stat 01/04/20 19:34 Blood Culture x2 Reflex Set [OM.PC] Stat 01/04/20 19:43 Admission Status [Patient Status] [ADT] Stat 01/04/20 19:51 CULTURE BLOOD [BC] Stat 01/04/20 19:55 CULTURE BLOOD [BC] Stat
[2020-01-04] MEDS ORDERED: Sodium Chloride 0.9% 2.5 ML Syringe FLUSH PRN (16:32)
[2020-01-04] MEDS ORDERED: Sodium Chloride 0.9% 10 ML Syringe FLUSH PRN (16:32)
--- NOTE | 2020-01-04 16:38 | PCM.SN.2 ---
- Free Text/Narrative Note: 12-Lead ECG Interpretation Acquired: 4:25 PM Rhythm: Sinus tachycardia Rate: 109 bpm Anderson: Normal Intervals: Normal Ectopy: None RV Strain: No obvious RV strain pattern. ST Segments/T-Waves: No notable changes Acute Ischemic Changes: None apparent Interpretation: No STEMI
[2020-01-04 17:12] LABS: BLOOD UREA NITROGEN,BUN 10 mg/dL (7.0-18.0); CARBON DIOXIDE,CO2 23.5 mmol/L (21.0-32.0); CHLORIDE,CL 94 mmol/L (98-107); GLUCOSE RANDOM 98 mg/dL (74-106); POTASSIUM,K 3.4 mmol/L (3.5-5.1); SODIUM,NA 129 mmol/L (136-145)
[2020-01-04] MEDS ORDERED: Sodium Chloride 0.9% 1,000 ML IV ONE (17:26)
--- NOTE | 2020-01-04 17:28 | CR ---
Indication: Chest pain Comparison: Single view chest December 12, 2019 Technique: Single AP view chest Findings: There is hyperinflation and chronic interstitial change. There is residual airspace opacity in the right upper lobe likely representing residual infiltrate. There is no pleural effusion or pneumothorax. The cardiac silhouette is mildly prominent. The bony thorax is grossly intact. Impression: Chronic interstitial changes with residual airspace opacity in the right upper lobe likely representing infiltrate. Dictated by Leo Anguiano MD @ Jan 04 2020 5:26PM Signed by Dr. Leo Anguiano @ Jan 04 2020 5:27PM
[2020-01-04] MEDS ORDERED: Iopamidol 755 MG/ML 500 ML Multipack Bottle IVPUSH ONE (18:26)
--- NOTE | 2020-01-04 19:10 | CT ---
INDICATION: Cough. Elevated D-dimer. History of COVID-19. Evaluate for pulmonary embolism. CT CHEST WITH CONTRAST TECHNIQUE: Multidetector CT imaging was performed through the chest following intravenous contrast administration using 100 mL Isovue 370. Coronal and sagittal reconstructions were generated. COMPARISON: 12/12/[address] FINDINGS: Lungs and airways: The previously seen moderate-sized and fairly discrete areas of ground-glass infiltrate have moderately improved, but there are now numerous new small foci of ground-glass infiltrate scattered throughout both lungs in lung parenchyma which previously appeared normal. Central airways are patent. Pleura and pleural spaces: No pleural effusions or pneumothorax. Heart and mediastinum: Upper normal heart size. No significant pericardial effusion. No significant change in multiple mildly enlarged mediastinal and bilateral hilar lymph nodes. Vascular structures: No filling defects in the pulmonary arterial tree to suggest pulmonary emboli. Normal caliber aorta. Chest wall and axillae: No mass or axillary lymphadenopathy. Osseous structures: Mild spinal degenerative changes. No acute fractures identified. Upper abdomen: Unchanged moderately large hiatal hernia. IMPRESSION: 1. Changing pattern of bilateral ground-glass infiltrates, with improvement in the previously seen areas of infiltrate but numerous small new foci of infiltrate in both lungs. Findings may represent persistent COVID-19 pneumonia. 2. Unchanged mild mediastinal and hilar lymphadenopathy. 3. No pulmonary emboli identified. RADHA PEREZ MD [facility] Dictated by Carlo Perez MD @ 01/04/2020 7:08:48 PM Dictated by: Carlo Perez MD @ 01/04/2020 19:09:03 (Electronically Signed)
[2020-01-04] MEDS ORDERED: Azithromycin 250 MG Tab PO STA (19:34)
[2020-01-04] MEDS ORDERED: cefTRIAXone 1 GM in Premix Bag 1 BAG IV ONE (19:34)
--- NOTE | 2020-01-04 22:47 | PCM.HP.2 ---
H&P History of Present Illness - General Date of Service: 01/04/20 Admit Problem/Dx: Admission Diagnosis/Problem Admission Diagnosis/Problem Pneumonia - History of Present Illness Initial Comments - Free Text/Narative: 74 yo female with pmh of hypertension who was hospitalized last month for COVID pneumonia. Patient was treated with remdesivir and dexamethason. She report since discharge she has had fatigue and cough. She also reports occasional shortness of breath. Her symptoms were worse today so her daughter demanded she go to the ER. IN the ER she was noted to be hyponatremic again. She was sattin g 89% on RA. CT chest angio was negative for PE. Showed improving bilateral opacities but with also new focal ground glass opacities. - Related Data Allergies/Adverse Reactions: Allergies Allergy/AdvReac Type Severity Reaction Status Date / Time Penicillins Allergy Rash Verified 01/04/20 22:30 Home Medications: Home Meds Lisinopril/Hydrochlorothiazide [Lisinopril-Hctz 20-25 mg Tab] 20 - 25 mg PO DAILY 07/07/15 [History] Lovastatin 40 mg PO DAILY 07/07/15 [History] amLODIPine [Norvasc] 2.5 mg PO DAILY 07/07/15 [History] Benzonatate [Tessalon Perle] 100 mg PO TID PRN 4 Days #12 capsule 12/15/19 [Rx] levoFLOXacin [Levaquin] 750 mg PO DAILY #4 tab 01/05/20 [Rx] Past Medical History HEENT History: Reports: Allergic Rhinitis Other HEENT History: wears glasses Cardiovascular History: Reports: High Cholesterol, Hypertension Respiratory History: Reports: None Gastrointestinal History: Reports: Colon Polyp Genitourinary History: Reports: None [employer] History: Reports: None Musculoskeletal History: Reports: None Neurological History: Reports: None Psychiatric History: Reports: None Endocrine/Metabolic History: Reports: Obesity/BMI 30+ Hematologic History: Reports: None Immunologic History: Reports: None Oncologic (Cancer) History: Reports: None Dermatologic History: Reports: None - Infectious Disease History Infectious Disease History: Reports: Chicken Pox, Measles, Mumps, Novel Coronavirus - Past Surgical History Head Surgeries/Procedures: Reports: None HEENT Surgical History: Reports: Tonsillectomy Cardiovascular Surgical History: Reports: None Respiratory Surgical History: Reports: None GI Surgical History: Reports: Colonoscopy Female Surgical History: Reports: Hysterectomy Endocrine Surgical History: Reports: None Neurological Surgical History: Reports: None Musculoskeletal Surgical History: Reports: None Oncologic Surgical History: Reports: None Social & Family History - Family History Family Medical History: No Pertinent Family History - Tobacco Use Tobacco Use Status *Q: Never Tobacco User - Caffeine Use Caffeine Use: Reports: Coffee - Recreational Drug Use Recreational Drug Use: No H&P Review of Systems - Review of Systems: Review Of Systems: Comprehensive ROS is negative, except as noted in HPI. Exam - Exam Exam: See Below - Vital Signs Vital Signs: Last Vital Signs Temp 36.6 C 01/04/20 21:56 Pulse 94 01/04/20 21:56 Resp 18 01/04/20 21:56 BP 128/67 01/04/20 21:56 Pulse Ox 95 01/04/20 21:56 Weight: 92.669 kg - Exam General: Alert, Oriented HEENT: Mucosa Moist & [place] Lungs: Clear to Auscultation, Normal Respiratory Effort Cardiovascular: Regular Rate, Regular Rhythm GI/Abdominal Exam: Normal Bowel Sounds, Soft, Non-Tender Extremities: Non-Tender, No Pedal Edema Skin: Warm, Dry, Intact - Patient Data Lab Results Last 24 hrs: Laboratory Results - last 24 hr 01/04/20 01/04/20 01/04/20 Range/Units 16:31 16:31 16:31 WBC 10.02 (4.0-11.0) K/uL RBC 4.74 (4.30-5.90) M/uL Hgb 13.2 (12.0-16.0) g/dL Hct 38.8 (36.0-46.0) % MCV 81.9 (80.0-98.0) fL MCH 27.8 (27.0-32.0) pg MCHC 34.0 (31.0-37.0) g/dL RDW Std Deviation 41.8 (28.0-62.0) fl RDW Coeff of Harsh 14 (11.0-15.0) % Plt Count 231 (150-400) K/uL MPV 8.60 (7.40-12.00) fL Neut % (Auto) 56.9 (48.0-80.0) % Lymph % (Auto) 28.6 (16.0-40.0) % [place] % (Auto) 10.4 (0.0-15.0) % Eos % (Auto) 3.9 (0.0-7.0) % Baso % (Auto) 0.2 (0.0-1.5) % Neut # (Auto) 5.7 (1.4-5.7) K/uL Lymph # (Auto) 2.9 H (0.6-2.4) K/uL [place] # (Auto) 1.0 H (0.0-0.8) K/uL Eos # (Auto) 0.4 (0.0-0.7) K/uL Baso # (Auto) 0.0 (0.0-0.1) K/uL Nucleated RBC % 0.0 /100WBC Nucleated RBCs # 0 K/uL D-Dimer, Quantitative (0.0-0.50) mg/L FEU VBG pH 7.43 H (7.31-7.41) VBG pCO2 38 (35-45) mmHG VBG pO2 33 (30-40) mmHG VBG HCO3 25 (22-30) mEq/L VBG Total CO2 23 L (41-51) mmol/L VBG Base Excess 0.7 (-3.0-3.0) Lactate (0.20-2.00) mmol/L Sodium 129 L (136-145) mmol/L Potassium 3.4 L (3.5-5.1) mmol/L Chloride 94 L (98-107) mmol/L Carbon Dioxide 23.5 (21.0-32.0) mmol/L BUN 10 (7.0-18.0) mg/dL Creatinine 1.1 H (0.6-1.0) mg/dL Est Cr Clr Drug Dosing 34.95 mL/min Estimated GFR (MDRD) 48.4 ml/min Glucose 98 (74-106) mg/dL Calcium 9.1 (8.5-10.1) mg/dL Total Bilirubin 0.4 (0.2-1.0) mg/dL AST 24 (15-37) IU/L ALT 35 (14-63) IU/L Alkaline Phosphatase 87 (46-116) U/L Troponin I < 0.050 (0.000-0.056) ng/mL Total Protein 7.7 (6.4-8.2) g/dL Albumin 2.4 L (3.4-5.0) g/dL Globulin 5.3 H (2.6-4.0) g/dL Albumin/Globulin Ratio 0.5 L (0.9-1.6) SARS-CoV-2 RNA (APRIL) (NEGATIVE) 01/04/20 01/04/20 01/04/20 Range/Units 16:31 16:31 16:39 WBC (4.0-11.0) K/uL RBC (4.30-5.90) M/uL Hgb (12.0-16.0) g/dL Hct (36.0-46.0) % MCV (80.0-98.0) fL MCH (27.0-32.0) pg MCHC (31.0-37.0) g/dL RDW Std Deviation (28.0-62.0) fl RDW Coeff of Harsh (11.0-15.0) % Plt Count (150-400) K/uL MPV (7.40-12.00) fL Neut % (Auto) (48.0-80.0) % Lymph % (Auto) (16.0-40.0) % [place] % (Auto) (0.0-15.0) % Eos % (Auto) (0.0-7.0) % Baso % (Auto) (0.0-1.5) % Neut # (Auto) (1.4-5.7) K/uL Lymph # (Auto) (0.6-2.4) K/uL [place] # (Auto) (0.0-0.8) K/uL Eos # (Auto) (0.0-0.7) K/uL Baso # (Auto) (0.0-0.1) K/uL Nucleated RBC % /100WBC Nucleated RBCs # K/uL D-Dimer, Quantitative 4.38 H (0.0-0.50) mg/L FEU VBG pH (7.31-7.41) VBG pCO2 (35-45) mmHG VBG pO2 (30-40) mmHG VBG HCO3 (22-30) mEq/L VBG Total CO2 (41-51) mmol/L VBG Base Excess (-3.0-3.0) Lactate 1.5 (0.20-2.00) mmol/L Sodium (136-145) mmol/L Potassium (3.5-5.1) mmol/L Chloride (98-107) mmol/L Carbon Dioxide (21.0-32.0) mmol/L BUN (7.0-18.0) mg/dL Creatinine (0.6-1.0) mg/dL Est Cr Clr Drug Dosing mL/min Estimated GFR (MDRD) ml/min Glucose (74-106) mg/dL Calcium (8.5-10.1) mg/dL Total Bilirubin (0.2-1.0) mg/dL AST (15-37) IU/L ALT (14-63) IU/L Alkaline Phosphatase (46-116) U/L Troponin I (0.000-0.056) ng/mL Total Protein (6.4-8.2) g/dL Albumin (3.4-5.0) g/dL Globulin (2.6-4.0) g/dL Albumin/Globulin Ratio (0.9-1.6) SARS-CoV-2 RNA (APRIL) NEGATIVE (NEGATIVE) Result Diagrams: 01/05/20 05:51 01/05/20 05:51 Sepsis Event Note - Evaluation Sepsis Screening Result: No Definite Risk - Focused Exam Vital Signs: Vital Signs Temp Pulse Resp BP BP Pulse Ox 01/04/20 21:56 36.6 C 94 18 128/67 95 01/04/20 21:22 104 H 16 133/61 94 L 01/04/20 20:22 102 H 16 132/57 L 94 L 01/04/20 19:24 100 20 137/62 95 01/04/20 18:52 107 H 16 137/66 92 L 01/04/20 17:52 102 H 18 137/60 93 L 01/04/20 17:35 108 H 20 135/60 95 01/04/20 16:19 36.6 C 120 H 20 148/78 H 94 L Problem List Initiated/Reviewed/Updated: Yes Orders Last 24hrs: Active Orders 24 hr Category Date Time Status Admission Status [Patient Status] [ADT] Stat ADT 01/04/20 19:43 Active Antiembolic Devices [RC] PER UNIT ROUTINE Care 01/04/20 22:46 Active Oxygen Therapy [RC] PRN Care 01/04/20 22:45 Active Oxygen Therapy, ED [RC] ASDIRECTED Care 01/04/20 16:32 Active Up ad Andressa [RC] ASDIRECTED Care 01/04/20 22:45 Active VTE/DVT Education [RC] PER UNIT ROUTINE Care 01/04/20 22:45 Active Vital Signs [RC] Q4H Care 01/04/20 22:45 Active Regular Diet [DIET] Diet 01/04/20 Breakfast Active CBC WITH AUTO DIFF [HEME] AM Lab 01/05/20 05:11 Ordered COMPREHENSIVE METABOLIC PN,CMP [CHEM] AM Lab 01/05/20 05:11 Ordered CULTURE BLOOD [BC] Stat Lab 01/04/20 19:51 Received CULTURE BLOOD [BC] Stat Lab 01/04/20 19:55 Received Azithromycin [Zithromax] 500 mg Med 01/05/20 20:00 Active Sodium Chloride 0.9% [Normal Saline (AdvBag)] 250 ml IV Q24H Sodium Chloride 0.9% [Saline Flush] Med 01/04/20 16:32 Active 10 ml FLUSH ASDIRECTED PRN Sodium Chloride 0.9% [Saline Flush] Med 01/04/20 16:32 Active 2.5 ml FLUSH ASDIRECTED PRN cefTRIAXone [Rocephin] 1 gm Med 01/05/20 20:00 Active Sodium Chloride 0.9% [Normal Saline] 50 ml IV Q24H Blood Culture x2 Reflex Set [OM.PC] Stat Oth 01/04/20 19:34 Ordered Saline Lock Insert [OM.PC] Stat Oth 01/04/20 16:32 Ordered Sequential Compression Device [OM.PC] Per Unit Routine Oth 01/04/20 22:46 Ordered Resuscitation Status Routine Resus Stat 01/04/20 22:45 Ordered Medication Orders Ceftriaxone Sodium 1 gm/ (Sodium Chloride) 50 mls @ 100 mls/hr IV Q24H [facility] Azithromycin 500 mg/ Sodium (Chloride) 250 mls @ 250 mls/hr IV Q24H [facility] Sodium Chloride (Saline Flush) 10 ml FLUSH ASDIRECTED PRN PRN Reason: Keep Vein Open Last Admin: 01/04/20 17:34 Dose: 10 ml Documented by: MURDNIC Sodium Chloride (Saline Flush) 2.5 ml FLUSH ASDIRECTED PRN PRN Reason: Keep Vein Open Last Admin: 01/04/20 17:34 Dose: 2.5 ml Documented by: MURDNDONNA Assessment/Plan Comment:: 74 yo female with recent history of Covid infection, currently testing negative for covid. Patient has new infiltrates on CT scan so will treat for pneumonia with Rocephin and azithromycin.
[2020-01-04] MEDS ORDERED: Enoxaparin 40 MG/0.4 ML Syringe SUBCUT SCH (23:00)
[2020-01-05 06:32] LABS: BLOOD UREA NITROGEN,BUN 9 mg/dL (7.0-18.0); CHLORIDE,CL 98 mmol/L (98-107); GLUCOSE RANDOM 105 mg/dL (74-106); POTASSIUM,K 4.3 mmol/L (3.5-5.1); SODIUM,NA 131 mmol/L (136-145)
[2020-01-05 08:39] VITALS: BP 133/74; PULSE 100
--- NOTE | 2020-01-05 11:39 | PCM.DCSUM1 ---
Discharge Summary - Discharge Data Discharge Date: 01/05/20 Discharge Disposition: Home, Self-Care 01 Condition: Stable - Referral to Home Health Primary Care Physician: Nigel Moore MD - Patient Summary/Data Hospital Course: 74 yo female with pmh of hypertension who was hospitalized last month for COVID pneumonia. Patient was treated with remdesivir and dexamethasone. She report since discharge she has had fatigue and cough. She also reports occasional shortness of breath. Her symptoms were worse today so her daughter demanded she go to the ER. IN the ER she was noted to be hyponatremic again. She was satting 89% on RA. CT chest angio was negative for PE. Showed improving bilateral opacities but with also new focal ground glass opacities. She was given Rocephin and Azithromycin for pneumonia and monitored overnight. This morning she is satting 92% on RA. She is requesting discharge. Patient is to be discharged on Levaquin for four more days. - Patient Instructions Diet: Heart Healthy Diet - Discharge Plan Prescriptions/Med Rec: levoFLOXacin [Levaquin] 750 mg PO DAILY #4 tab Home Medications: Home Meds Lisinopril/Hydrochlorothiazide [Lisinopril-Hctz 20-25 mg Tab] 20 - 25 mg PO DAILY 07/07/15 [History] Lovastatin 40 mg PO DAILY 07/07/15 [History] amLODIPine [Norvasc] 2.5 mg PO DAILY 07/07/15 [History] Benzonatate [Tessalon Perle] 100 mg PO TID PRN 4 Days #12 capsule 12/15/19 [Rx] levoFLOXacin [Levaquin] 750 mg PO DAILY #4 tab 01/05/20 [Rx] Patient Handouts: COVID-19 Frequently Asked Questions, COVID-19, Levofloxacin tablets Forms: ED Department Discharge Referrals: Nigel Moore MD [Primary Care Provider] - - Discharge Summary/Plan Comment DC Time >30 min.: No - Patient Data Vitals - Most Recent: Last Vital Signs Temp 36.5 C 01/05/20 08:38 Pulse 100 01/05/20 08:38 Resp 17 01/05/20 08:38 BP 133/74 01/05/20 08:38 Pulse Ox 92 L 01/05/20 08:38 Weight - Most Recent: 92.669 kg I&O - Last 24 hours: Intake & Output 01/04/20 01/05/20 01/05/20 22:59 06:59 14:59 Intake Total 200 Output Total 350 Balance -150 Lab Results - Last 24 hrs: Laboratory Results - last 24 hr 01/04/20 01/04/20 01/04/20 Range/Units 16:31 16:31 16:31 WBC 10.02 (4.0-11.0) K/uL RBC 4.74 (4.30-5.90) M/uL Hgb 13.2 (12.0-16.0) g/dL Hct 38.8 (36.0-46.0) % MCV 81.9 (80.0-98.0) fL MCH 27.8 (27.0-32.0) pg MCHC 34.0 (31.0-37.0) g/dL RDW Std Deviation 41.8 (28.0-62.0) fl RDW Coeff of Harsh 14 (11.0-15.0) % Plt Count 231 (150-400) K/uL MPV 8.60 (7.40-12.00) fL Neut % (Auto) 56.9 (48.0-80.0) % Lymph % (Auto) 28.6 (16.0-40.0) % [place] % (Auto) 10.4 (0.0-15.0) % Eos % (Auto) 3.9 (0.0-7.0) % Baso % (Auto) 0.2 (0.0-1.5) % Neut # (Auto) 5.7 (1.4-5.7) K/uL Lymph # (Auto) 2.9 H (0.6-2.4) K/uL [place] # (Auto) 1.0 H (0.0-0.8) K/uL Eos # (Auto) 0.4 (0.0-0.7) K/uL Baso # (Auto) 0.0 (0.0-0.1) K/uL Nucleated RBC % 0.0 /100WBC Nucleated RBCs # 0 K/uL D-Dimer, Quantitative (0.0-0.50) mg/L FEU VBG pH 7.43 H (7.31-7.41) VBG pCO2 38 (35-45) mmHG VBG pO2 33 (30-40) mmHG VBG HCO3 25 (22-30) mEq/L VBG Total CO2 23 L (41-51) mmol/L VBG Base Excess 0.7 (-3.0-3.0) Lactate (0.20-2.00) mmol/L Sodium 129 L (136-145) mmol/L Potassium 3.4 L (3.5-5.1) mmol/L Chloride 94 L (98-107) mmol/L Carbon Dioxide 23.5 (21.0-32.0) mmol/L BUN 10 (7.0-18.0) mg/dL Creatinine 1.1 H (0.6-1.0) mg/dL Est Cr Clr Drug Dosing 34.95 mL/min Estimated GFR (MDRD) 48.4 ml/min Glucose 98 (74-106) mg/dL Calcium 9.1 (8.5-10.1) mg/dL Total Bilirubin 0.4 (0.2-1.0) mg/dL AST 24 (15-37) IU/L ALT 35 (14-63) IU/L Alkaline Phosphatase 87 (46-116) U/L Troponin I < 0.050 (0.000-0.056) ng/mL Total Protein 7.7 (6.4-8.2) g/dL Albumin 2.4 L (3.4-5.0) g/dL Globulin 5.3 H (2.6-4.0) g/dL Albumin/Globulin Ratio 0.5 L (0.9-1.6) SARS-CoV-2 RNA (APRIL) (NEGATIVE) 01/04/20 01/04/20 01/04/20 Range/Units 16:31 16:31 16:39 WBC (4.0-11.0) K/uL RBC (4.30-5.90) M/uL Hgb (12.0-16.0) g/dL Hct (36.0-46.0) % MCV (80.0-98.0) fL MCH (27.0-32.0) pg MCHC (31.0-37.0) g/dL RDW Std Deviation (28.0-62.0) fl RDW Coeff of Harsh (11.0-15.0) % Plt Count (150-400) K/uL MPV (7.40-12.00) fL Neut % (Auto) (48.0-80.0) % Lymph % (Auto) (16.0-40.0) % [place] % (Auto) (0.0-15.0) % Eos % (Auto) (0.0-7.0) % Baso % (Auto) (0.0-1.5) % Neut # (Auto) (1.4-5.7) K/uL Lymph # (Auto) (0.6-2.4) K/uL [place] # (Auto) (0.0-0.8) K/uL Eos # (Auto) (0.0-0.7) K/uL Baso # (Auto) (0.0-0.1) K/uL Nucleated RBC % /100WBC Nucleated RBCs # K/uL D-Dimer, Quantitative 4.38 H (0.0-0.50) mg/L FEU VBG pH (7.31-7.41) VBG pCO2 (35-45) mmHG VBG pO2 (30-40) mmHG VBG HCO3 (22-30) mEq/L VBG Total CO2 (41-51) mmol/L VBG Base Excess (-3.0-3.0) Lactate 1.5 (0.20-2.00) mmol/L Sodium (136-145) mmol/L Potassium (3.5-5.1) mmol/L Chloride (98-107) mmol/L Carbon Dioxide (21.0-32.0) mmol/L BUN (7.0-18.0) mg/dL Creatinine (0.6-1.0) mg/dL Est Cr Clr Drug Dosing mL/min Estimated GFR (MDRD) ml/min Glucose (74-106) mg/dL Calcium (8.5-10.1) mg/dL Total Bilirubin (0.2-1.0) mg/dL AST (15-37) IU/L ALT (14-63) IU/L Alkaline Phosphatase (46-116) U/L Troponin I (0.000-0.056) ng/mL Total Protein (6.4-8.2) g/dL Albumin (3.4-5.0) g/dL Globulin (2.6-4.0) g/dL Albumin/Globulin Ratio (0.9-1.6) SARS-CoV-2 RNA (APRIL) NEGATIVE (NEGATIVE) 01/05/20 01/05/20 Range/Units 05:51 05:51 WBC 8.61 (4.0-11.0) K/uL RBC 4.05 L (4.30-5.90) M/uL Hgb 11.2 L (12.0-16.0) g/dL Hct 33.5 L (36.0-46.0) % MCV 82.7 (80.0-98.0) fL MCH 27.7 (27.0-32.0) pg MCHC 33.4 (31.0-37.0) g/dL RDW Std Deviation 42.3 (28.0-62.0) fl RDW Coeff of Harsh 14 (11.0-15.0) % Plt Count 248 (150-400) K/uL MPV 8.60 (7.40-12.00) fL Neut % (Auto) 66.3 (48.0-80.0) % Lymph % (Auto) 17.9 (16.0-40.0) % [place] % (Auto) 10.7 (0.0-15.0) % Eos % (Auto) 4.9 (0.0-7.0) % Baso % (Auto) 0.2 (0.0-1.5) % Neut # (Auto) 5.7 (1.4-5.7) K/uL Lymph # (Auto) 1.5 (0.6-2.4) K/uL [place] # (Auto) 0.9 H (0.0-0.8) K/uL Eos # (Auto) 0.4 (0.0-0.7) K/uL Baso # (Auto) 0.0 (0.0-0.1) K/uL Nucleated RBC % 0.0 /100WBC Nucleated RBCs # 0 K/uL D-Dimer, Quantitative (0.0-0.50) mg/L FEU VBG pH (7.31-7.41) VBG pCO2 (35-45) mmHG VBG pO2 (30-40) mmHG VBG HCO3 (22-30) mEq/L VBG Total CO2 (41-51) mmol/L VBG Base Excess (-3.0-3.0) Lactate (0.20-2.00) mmol/L Sodium 131 L (136-145) mmol/L Potassium 4.3 (3.5-5.1) mmol/L Chloride 98 (98-107) mmol/L Carbon Dioxide 26.0 (21.0-32.0) mmol/L BUN 9 (7.0-18.0) mg/dL Creatinine 0.9 (0.6-1.0) mg/dL Est Cr Clr Drug Dosing 42.72 mL/min Estimated GFR (MDRD) > 60.0 ml/min Glucose 105 (74-106) mg/dL Calcium 8.7 (8.5-10.1) mg/dL Total Bilirubin 0.4 (0.2-1.0) mg/dL AST 19 (15-37) IU/L ALT 29 (14-63) IU/L Alkaline Phosphatase 70 (46-116) U/L Troponin I (0.000-0.056) ng/mL Total Protein 6.3 L (6.4-8.2) g/dL Albumin 1.9 L (3.4-5.0) g/dL Globulin 4.4 H (2.6-4.0) g/dL Albumin/Globulin Ratio 0.4 L (0.9-1.6) SARS-CoV-2 RNA (APRIL) (NEGATIVE) Med Orders - Current: Current Medications Enoxaparin Sodium (Lovenox) 40 mg SUBCUT Q24H [facility] Last Admin: 01/04/20 23:54 Dose: 40 mg Documented by: Ceftriaxone Sodium/Dextrose 1 (gm/ Premix) 50 mls @ 100 mls/hr IV Q24H [facility] Azithromycin 500 mg/ Sodium (Chloride) 250 mls @ 250 mls/hr IV Q24H [facility] Sodium Chloride (Saline Flush) 10 ml FLUSH ASDIRECTED PRN PRN Reason: Keep Vein Open Last Admin: 01/04/20 17:34 Dose: 10 ml Documented by: Sodium Chloride (Saline Flush) 2.5 ml FLUSH ASDIRECTED PRN PRN Reason: Keep Vein Open Last Admin: 01/04/20 17:34 Dose: 2.5 ml Documented by: Discontinued Medications Azithromycin (Zithromax) 500 mg PO NOW STA Stop: 01/04/20 19:35 Last Admin: 01/04/20 19:56 Dose: 500 mg Documented by: Azithromycin (Zithromax) 500 mg IV Q24H [facility] Sodium Chloride (Normal Saline) 1,000 mls @ 999 mls/hr IV STAT ONE Stop: 01/04/20 18:26 Last Admin: 01/04/20 17:33 Dose: 999 mls/hr Documented by: Ceftriaxone Sodium/Dextrose 1 (gm/ Premix) 50 mls @ 100 mls/hr IV ONETIME ONE Stop: 01/04/20 20:03 Last Admin: 01/04/20 19:56 Dose: 100 mls/hr Documented by: Iopamidol (Isovue Multipack-370 (76%)) 100 ml IVPUSH ONETIME ONE Stop: 01/04/20 18:27 Last Admin: 01/04/20 18:26 Dose: 100 ml Documented by:
[2020-01-05] MEDS ORDERED: cefTRIAXone 1 GM in Premix Bag 1 BAG IV SCH (20:00)
[2020-01-05] MEDS ORDERED: Azithromycin 500 MG in Sodium Chloride 0.9% 250 ML IV SCH (20:00)
[2020-01-05] MEDS ORDERED: Azithromycin 500 MG Vial IV SCH (22:45)
== END 2020-01-05 13:20 | disposition home or self-care (01) ==
LOC: MW.ED 16:16 → MW.ICU 20:16
PROVIDERS: ADMIT Internal Medicine; ATTEND Internal Medicine
DX: R06.02 Shortness of breath (principal); R05 Cough; I10 Essential (primary) hypertension; E66.9 Obesity, unspecified; E78.00 Pure hypercholesterolemia, unspecified; Z79.899 Other long term (current) drug therapy; Z88.0 Allergy status to penicillin; Z98.890 Other specified postprocedural states; Z86.19 Personal history of other infectious and parasitic diseases; Z20.828 Contact with and (suspected) exposure to other viral communicable diseases; Z68.37 Body mass index [BMI] 37.0-37.9, adult
CPT/HCPCS: 36415; 71045; 71275; 80053; 82803; 83605; 84484; 85025; 85379; 87040; 93005; 96365; 96372; 99285; A9270; G0378; J0696; J1650; J7030; Q9967; U0002; 93010; 99217; 99218